=== PATIENT | male | born 1965 | race Caucasian/White ===

== ENCOUNTER 2023-07-01 13:23 | Observation (INO) | payer BC ==
--- NOTE | 2023-07-01 07:50 | HP ---
DATE OF SURGERY: 07/01/2023 HISTORY OF PRESENT ILLNESS: The patient is a 57-year-old with several month history of some rectal pain and bleeding. 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 He is in need of chemo and radiation. He is in need of Port-A-Cath placement. PAST MEDICAL HISTORY: Pneumonia. Anorectal cancer in the past. PAST SURGICAL HISTORY: T&A. Cholecystectomy. Colonoscopy. MEDICATIONS: He had been on ibuprofen in the past. ALLERGIES: NKDA. FAMILY HISTORY: Chronic obstructive pulmonary disease, heart disease. SOCIAL HISTORY: One pack per day smoker. No alcohol abuse. REVIEW OF SYSTEMS: Twelve systems reviewed. No chest pain or palpitations. Other systems negative or noncontributory as above and per preadmission questionnaire. PHYSICAL EXAMINATION: GENERAL: No acute distress. HEENT: Sclerae nonicteric. EOMI. Oral mucous membranes moist. NECK: No JVD. CHEST: Equal excursion, nonlabored breathing. CVS: Regular rate and rhythm. ABDOMEN: Soft. No peritoneal signs. EXTREMITIES: No cyanosis or edema. NEURO: Alert, oriented, moving extremities symmetrically. RECTAL: Firm mass in the anorectal area. Last colonoscopy had squamous cell carcinoma. PSYCH: Appropriate mood and affect. SKIN: Dry. IMPRESSION: Squamous cell carcinoma in anorectal area. He is in need of chemo and radiation. Risks and benefits explained in detail including bleeding or infection, risk of bowel injury or perforation, risk of pneumothorax or thrombosis, remote risk of major venous tear, risk of mortality, risk of port infection or malfunction possibly requiring other procedures. General risk of anesthesia or sedation but not limited to. Consent obtained. Will proceed with Port-A-Cath placement as an outpatient.
[2023-07-01] MEDS: Lactated Ringers 1,000 ML IV SCH (11:58)
[2023-07-01] MEDS: CEFAZOLIN 2 GM-D5W BAG** 2 GM/50 ML ML IV SCH (11:58)
[~2023-07-01 13:23] MED LIST: CARDIZEM DRIP 100 MG/100 ML D5W 100 ML IV ONE
--- NOTE | 2023-07-01 13:25 | ERPHSYRPT ---
- History of Present Illness Time Seen by Provider: 07/01/23 13:25 Source: patient, family Exam Limitations: no limitations Physician History: This is a 57-year-old white male patient who has been diagnosed with rectal cancer. He was sent to our emergency department from the preoperative holding area. He was going to have a Port-A-Cath placed. However, he was noted to be tachycardic and a twelve-lead EKG was performed which showed a heart rate of 131 bpm, atrial fibrillation and incomplete right bundle branch block and left anterior fascicular block. He has no known history of atrial fibrillation. Patient denies chest pain. He denies shortness of breath. The patient's significant other provided additional, independent history. She stated that approximately 2 weeks ago, patient was seen in the radiology department for testing and was found to have a rapid heart at that time. However no other workup or discussion was made. Differential diagnosis includes CHF, electrolyte abnormalities, myocardial infarction, arrhythmia, urinary tract infection, thyroid abnormalities. Chest x-ray was interpreted by the radiologist and I read the impression. Non acute hyperinflated chest x-ray with chronic features. I spoke with Dr. Brooke, the telehospitalist. I reviewed the patient history, presenting complaint, workup performed and the results of that workup. He agrees to place this patient in observation on a monitored bed and continue Cardizem. They will do further workup in the hospital. Timing/Duration: today Activities at Onset: none Quality: other Chest Pain Radiation: no radiation Severity of Pain-Max: none Severity of Pain-Current: none (No pain) Modifying Factors: Improves With: nothing Nitro Today/Relief: no nitro taken today Aspirin Treatment Today: no aspirin today Associated Symptoms: denies symptoms Prior Chest Pain/Cardiac Workup: no prior chest pain, no prior cardiac workup Allergies/Adverse Reactions: No Known Drug Allergies Allergy (Verified 07/01/23 13:24) Home Medications: Hydrocodone/Acetaminophen [Hydrocodone-Acetamin 5-325 mg] 1 tab PO Q6H PRN PRN 07/01/23 [History] Morphine Sulfate Cr 30 mg [Ms Contin 30 mg] 30 mg PO BID 07/01/23 [History] Hx Tetanus, Diphtheria Vaccination/Date Given: Yes Hx Influenza Vaccination/Date Given: No Hx Pneumococcal Vaccination/Date Given: No Immunizations Up to Date: No Travel Risk - International Travel Have you traveled outside of the country in past 3 weeks: No - Emerging Infectious Disease Are you exhibiting symptoms associated with any current EIDs: Yes - Review of Systems Constitutional: No Symptoms Eyes: No Symptoms Ears, Nose, & Throat: No Symptoms Respiratory: No Symptoms Cardiac: No Symptoms Abdominal/Gastrointestinal: No Symptoms Genitourinary Symptoms: No Symptoms Musculoskeletal: No Symptoms Skin: No Symptoms Neurological: No Symptoms Psychological: No Symptoms Endocrine: No Symptoms Hematologic/Lymphatic: No Symptoms Immunological/Allergic: No Symptoms All Other Systems: Reviewed and Negative - Past Medical History Pertinent Past Medical History: Yes Neurological History: No Pertinent History ENT History: No Pertinent History Cardiac History: No Pertinent History Respiratory History: No Pertinent History Endocrine Medical History: No Pertinent History Musculoskeletal History: No Pertinent History GI Medical History: Gallbladder Disease History: No Pertinent History Psycho-Social History: No Pertinent History Male Reproductive Disorders: No Pertinent History Other Medical History: rectal cancer - Past Surgical History Past Surgical History: Yes Neuro Surgical History: No Pertinent History Cardiac: No Pertinent History Respiratory: No Pertinent History Gastrointestinal: Cholecystectomy Genitourinary: No Pertinent History Musculoskeletal: No Pertinent History Male Surgical History: No Pertinent History Other Surgical History: T&A. teeth extraction, bile duct surgery - Social History Smoking Status: Current every day smoker How long have you smoked: 25 years Exposure to second hand smoke: Yes Drug Use: none Patient Lives Alone: No - Nursing Vital Signs Nursing Vital Signs: Initial Vital Signs Temperature 97.4 F 07/01/23 11:49 Pulse Rate 92 H 07/01/23 11:49 Respiratory Rate 18 07/01/23 11:49 Blood Pressure 134/77 07/01/23 11:49 O2 Sat by Pulse Oximetry 100 07/01/23 11:49 Pain Scale Pain Intensity [Posterior] 5 Pain Intensity 0 - Physical Exam General Appearance: no apparent distress, alert, anxiety, obese Eye Exam: PERRL/EOMI, eyes nml inspection Ears, Nose, Throat Exam: normal ENT inspection, moist mucous membranes Neck Exam: normal inspection, non-tender, supple, full range of motion Respiratory Exam: normal breath sounds, lungs clear, airway intact, No chest tenderness, No respiratory distress Cardiovascular Exam: tachycardia, irregular Gastrointestinal/Abdomen Exam: soft, normal bowel sounds, other (Does have rectal pain), No tenderness Rectal Exam: not done Back Exam: normal inspection, normal range of motion, No CVA tenderness, No vertebral tenderness Extremity Exam: normal inspection, normal range of motion, pelvis stable Neurologic Exam: alert, oriented x 3, cooperative, instrument mechanic II-XII nml as tested, nml cerebellar function, nml station & gait, sensation nml Skin Exam: normal color, warm, dry Lymphatic Exam: No adenopathy SpO2 Interpretation: normal SpO2: 100 O2 Delivery: Room Air - Course Nursing assessment & vital signs reviewed: Yes EKG Interpreted by Me: RATE (131), A-fib, LAFB, Right Bundle Branch Block, Other (No acute ischemic changes on today's twelve-lead EKG. New A-fib with RVR when compared to twelve-lead EKG dated 10/01/2015.) Ordered Tests: Active Orders 24 hr Category Date Time Status Double Reamer Operator STAT Care 07/01/23 13:26 Active EKG-ER Only STAT Care 07/01/23 13:26 Active IV Insertion STAT Care 07/01/23 13:26 Active IV Insertion-2nd Peripheral STAT Care 07/01/23 13:46 Active Pulse Oximetry (ED) STAT Care 07/01/23 13:26 Active CHEST 1 VIEW (PORTABLE) Stat Exams 07/01/23 13:26 Completed CBC W DIFF Stat Lab 07/01/23 13:25 Completed CMP Stat Lab 07/01/23 13:25 Completed D-DIMER QUANTITATIVE Stat Lab 07/01/23 13:25 Completed MAGNESIUM Stat Lab 07/01/23 13:25 Completed NT PRO BNPII Stat Lab 07/01/23 13:25 Completed TROPONIN Q4H Lab 07/01/23 17:30 Ordered TROPONIN Q4H Lab 07/01/23 21:30 Ordered TROPONIN Stat Lab 07/01/23 13:25 Completed TSH [TSH, 3RD Generation] Stat Lab 07/01/23 14:34 Completed UA W/RFX UR CULTURE Stat Lab 07/01/23 14:20 Ordered EKG STAT RT 07/01/23 12:16 Completed Transfer Order Routine Transfer 07/01/23 Ordered Medication Summary Generic Name Dose Route Start Last Admin Trade Name Freq PRN Reason Stop Dose Admin Lactated Ringer's 1,000 mls @ 50 mls/hr 07/01/23 12:00 07/01/23 11:58 Lactated Ringers IV 07/31/23 11:59 50 mls/hr .Q20H JOSEPH Administration Diltiazem HCl 100 mls @ 5 mls/hr 07/01/23 13:30 07/01/23 16:31 Cardizem Drip 100 Mg/100 Ml D5w IV 07/31/23 13:29 10 mg/hr .Q20H PRN 10 mls/hr HEART RATE/ A-FIB Titration Protocol 5 MG/HR Discontinued Medications Generic Name Dose Route Start Last Admin Trade Name Freq PRN Reason Stop Dose Admin Diltiazem HCl 20 mg 07/01/23 13:26 07/01/23 13:26 Diltiazem Hcl Iv 5 Mg/Ml Vial IV 07/01/23 13:27 20 mg STAT ONE Administration Enoxaparin Sodium 95 mg 07/01/23 14:27 07/01/23 14:31 Enoxaparin Sodium 120 Mg/0.8 Ml Syringe SQ 07/01/23 14:28 95 mg STAT STA Administration Enoxaparin Sodium Confirm 07/01/23 14:31 Enoxaparin Sodium 120 Mg/0.8 Ml Syringe Administered 07/01/23 14:32 Dose 120 mg SQ .STK-MED ONE Cefazolin Sodium/Dextrose 2 gm in 50 mls @ 100 mls/hr 07/01/23 12:00 07/01/23 11:58 Cefazolin 2 Gm-D5w Bag IV 07/01/23 12:29 100 mls/hr ONCALLTOOR JOSEPH Administration Diltiazem HCl Confirm 07/01/23 13:22 Cardizem Drip 100 Mg/100 Ml D5w Administered 07/01/23 13:23 Dose 100 mls @ ud IV .STK-MED ONE Metoprolol Tartrate 5 mg 07/01/23 14:10 07/01/23 14:24 Metoprolol Tartrate 5 Mg/5 Ml Vial IV 07/01/23 14:11 5 mg STAT ONE Administration Metoprolol Tartrate Confirm 07/01/23 14:23 Metoprolol Tartrate 5 Mg/5 Ml Vial Administered 07/01/23 14:24 Dose 5 mg IV .STK-MED ONE Morphine Sulfate 6 mg 07/01/23 13:40 07/01/23 13:51 Morphine Sulfate 10 Mg/Ml Injection IV 07/01/23 13:41 6 mg STAT ONE Administration Morphine Sulfate Confirm 07/01/23 13:49 Morphine Sulfate 10 Mg/Ml Injection Administered 07/01/23 13:50 Dose 10 mg .ROUTE .STK-MED ONE Ondansetron HCl 4 mg 07/01/23 13:40 07/01/23 13:51 Ondansetron Hcl 4 Mg/2 Ml Vial IV 07/01/23 13:41 4 mg STAT ONE Administration Ondansetron HCl Confirm 07/01/23 13:49 Ondansetron Hcl 4 Mg/2 Ml Vial Administered 07/01/23 13:50 Dose 4 mg .ROUTE .[facility] ONE Lab/Rad Data: Laboratory Result Diagrams 07/01/23 13:25 07/01/23 13:25 Laboratory Results 07/01/23 07/01/23 07/01/23 Range/Units 14:34 14:34 13:25 WBC (4.0-10.5) x10^3/uL RBC (4.1-5.6) x10^6/uL Hgb (12.5-18.0) g/dL Hct (42-50) % MCV (78-100) fL MCH (26-32) pg MCHC (32-36) g/dL RDW (11.5-14.0) % Plt Count (150-450) x10^3/uL MPV (7.5-11.0) fL Gran % (36.0-66.0) % Immature Gran % (Auto) (0.00-0.4) % Nucleat RBC Rel Count (0.00-0.1) % Eos # (Auto) (0-0.5) x10^3/uL Immature Gran # (Auto) (0.00-0.03) x10^3u/L Absolute Lymphs (auto) (1.0-4.6) x10^3/uL Absolute Monos (auto) (0.0-1.3) x10^3/uL Absolute Nucleated RBC (0.00-0.01) x10^3u/L Lymphocytes % (24.0-44.0) % Monocytes % (0.0-12.0) % Eosinophils % (0.00-5.0) % Basophils % (0.0-0.4) % Absolute Granulocytes (1.4-6.9) x10^3/uL Basophils # (0-0.4) x10^3/uL D-Dimer (0.0-0.50) mg/L Sodium (135-145) mmol/L Potassium (3.5-5.1) mmol/L Chloride (98-107) mmol/L Carbon Dioxide (22-30) mmol/L Anion Gap (5-15) MEQ/L BUN (9-20) mg/dL Creatinine (0.66-1.25) mg/dL Estimated GFR ML/MIN Glucose (74-106) mg/dL Calcium (8.4-10.2) mg/dL Magnesium (1.6-2.3) mg/dL Total Bilirubin (0.2-1.3) mg/dL AST (17-59) U/L ALT (0-50) U/L Alkaline Phosphatase (38-126) U/L Troponin I < 0.012 (0.000-0.033) ng/mL NT-Pro-B Natriuret Pep 2920 (<300) pg/mL Serum Total Protein (6.3-8.2) g/dL Albumin (3.5-5.0) g/dL Free T4 1.64 (0.78-2.19) ng/dL TSH 3rd Generation 0.535 (0.470-4.680) mIU/L 07/01/23 07/01/23 07/01/23 Range/Units 13:25 13:25 13:25 WBC 6.5 (4.0-10.5) x10^3/uL RBC 3.83 L (4.1-5.6) x10^6/uL Hgb 11.8 L (12.5-18.0) g/dL Hct 35.8 L (42-50) % MCV 93.5 (78-100) fL MCH 30.8 (26-32) pg MCHC 33.0 (32-36) g/dL RDW 14.1 H (11.5-14.0) % Plt Count 257 (150-450) x10^3/uL MPV 9.6 (7.5-11.0) fL Gran % 73.2 H (36.0-66.0) % Immature Gran % (Auto) 0.3 (0.00-0.4) % Nucleat RBC Rel Count 0.0 (0.00-0.1) % Eos # (Auto) 0.04 (0-0.5) x10^3/uL Immature Gran # (Auto) 0.02 (0.00-0.03) x10^3u/L Absolute Lymphs (auto) 1.09 (1.0-4.6) x10^3/uL Absolute Monos (auto) 0.55 (0.0-1.3) x10^3/uL Absolute Nucleated RBC 0.00 (0.00-0.01) x10^3u/L Lymphocytes % 16.7 L (24.0-44.0) % Monocytes % 8.4 (0.0-12.0) % Eosinophils % 0.6 (0.00-5.0) % Basophils % 0.8 (0.0-0.4) % Absolute Granulocytes 4.79 (1.4-6.9) x10^3/uL Basophils # 0.05 (0-0.4) x10^3/uL D-Dimer 0.46 (0.0-0.50) mg/L Sodium 141 (135-145) mmol/L Potassium 4.0 (3.5-5.1) mmol/L Chloride 109 H (98-107) mmol/L Carbon Dioxide 20 L (22-30) mmol/L Anion Gap 16.1 H (5-15) MEQ/L BUN 11 (9-20) mg/dL Creatinine 0.76 (0.66-1.25) mg/dL Estimated GFR 104.8 ML/MIN Glucose 90 (74-106) mg/dL Calcium 9.4 (8.4-10.2) mg/dL Magnesium 2.2 (1.6-2.3) mg/dL Total Bilirubin 1.20 (0.2-1.3) mg/dL AST 21 (17-59) U/L ALT 17 (0-50) U/L Alkaline Phosphatase 62 (38-126) U/L Troponin I (0.000-0.033) ng/mL NT-Pro-B Natriuret Pep (<300) pg/mL Serum Total Protein 6.8 (6.3-8.2) g/dL Albumin 3.3 L (3.5-5.0) g/dL Free T4 (0.78-2.19) ng/dL TSH 3rd Generation (0.470-4.680) mIU/L - Progress Progress: improved, re-examined Air Movement: good Progress Note: 07/01/23 14:16 My medical decision making and the assignment of high complexity to this patient's medical issue today is based on review of the patient's past medical history, review of the patient's old twelve-lead EKG and outpatient EKG from today, review the patient's medication list, review the patient drug allergy lis t, history present illness and physical findings on examination. The workup in this patient includes placement of an intravenous line, repeat twelve-lead EKG, infusion of 20 mg of intravenous Cardizem, CBC, CMP, magnesium, troponin, D- dimer level, urinalysis. 07/01/23 14:18 Differential diagnosis includes electrolyte abnormalities, myocardial infarction, arrhythmia abnormalities, dehydration, urinary tract infection, thyroid abnormalities, CHF 07/01/23 14:26 After a 20 mg bolus of intravenous Cardizem and Cardizem drip started, the repeat twelve-lead EKG shows patient to still be in atrial fibrillation with a heart rate is improving. The heart rate now is 116 bpm. There are no acute ischemic changes on this repeat twelve-lead EKG. 07/01/23 15:29 Chest x-ray was interpreted by the radiologist and I reviewed the impression. Patient states hyperinflated nonacute chest x-ray with chronic features. 07/01/23 16:35 The third twelve-lead EKG was performed at 1628 on 07/01/2023 and I interpreted this twelve-lead EKG.. Patient now has rate controlled atrial fibrillation with a heart rate of 86. No evidence of acute ischemia present. Patient continues to be on Cardizem drip. Blood Culture(s) Obtained: No Antibiotics given: No Discussed with Dr.: Ashby Medical Desision Making - Independent Historian Additional History obtained from: Spouse - Discussion of managment Care discussed with:: hospitalist Reviewed:: Test results, Need for additional workup Agreed on:: Treatment plan, place in obs Will see patient: in hospital - Diagnostic Testing Diagnostic test were ordered, analyzed, and reviewed by me: Yes Radiological Interpretation: Reviewed by me, Teleradiologist Report - Risk of complications The pt has a high risk of morbidity or mortality based on: Decision regarding hospitilization or escalation of hosp level of care - Departure Departure Disposition: Observation Clinical Impression: Atrial fibrillation with RVR Condition: Stable Critical Care Time: Yes Critical Care Time(excluding separately billable procedures): Critical 30-74 mins (60) Referrals: JOHNSON BENAVIDEZ [Primary Care Provider] - Follow up/PCP as directed
[2023-07-01] MEDS: Cardizem IV 50 MG/10 ML IV ONE (13:26)
[2023-07-01] MEDS ORDERED: Zofran 4 MG/2 ML VIAL ONE (13:49)
[2023-07-01] MEDS ORDERED: MORPHINE SULFATE 10 MG/ML ONE (13:49)
[2023-07-01] MEDS: CARDIZEM DRIP 100 MG/100 ML D5W 100 ML IV PRN (13:51)
[2023-07-01] MEDS: MORPHINE SULFATE 10 MG/ML IV ONE (13:51)
[2023-07-01] MEDS: Zofran 4 MG/2 ML VIAL IV ONE (13:51)
[2023-07-01 13:53] LABS: Absolute Neutrophil Ct (ANC) 4.79 x10^3/uL (1.4-6.9); BASOPHIL % 0.8 % (0.0-0.4); Basophil (Absolute #) 0.05 x10^3/uL (0-0.4); Eosinophil % 0.6 % (0.00-5.0); Eosinophil (Absolute #) 0.04 x10^3/uL (0-0.5); Hematocrit 35.8 % (42-50); Hemoglobin 11.8 g/dL (12.5-18.0); IMMATURE GRAN # 0.02 x10^3u/L (0.00-0.03); IMMATURE GRAN % 0.3 % (0.00-0.4); Lymphocyte (Absolute #) 1.09 x10^3/uL (1.0-4.6); Lymphocytes % 16.7 % (24.0-44.0); Mean Cell Volume 93.5 fL (78-100); Mean Corpuscular Hemoglobin 30.8 pg (26-32); Mean Platelet Volume 9.6 fL (7.5-11.0); Monocyte (Absolute #) 0.55 x10^3/uL (0.0-1.3); Monocytes % 8.4 % (0.0-12.0); Neutrophil % 73.2 % (36.0-66.0); Platelet Count 257 x10^3/uL (150-450); Red Blood Count 3.83 x10^6/uL (4.1-5.6); Red Cell Distribution Width 14.1 % (11.5-14.0); White Blood Count 6.5 x10^3/uL (4.0-10.5)
--- NOTE | 2023-07-01 14:07 | XRAY ---
Indication: Short of breath. Atrial fibrillation. Comparison: September 10, 2015. Portable chest again hyperinflated and clear with incidental right base calcified granuloma. Heart and mediastinal structures within normal limits. Bony thorax intact. Impression: Continued nonacute hyperinflated chest with chronic feature.
[2023-07-01] MEDS ORDERED: LOPRESSOR INJECTION IV ONE (14:23)
[2023-07-01 14:24] LABS: ALBUMIN 3.3 g/dL (3.5-5.0); ANION GAP 16.1 MEQ/L (5-15); BILIRUBIN,TOTAL 1.2 mg/dL (0.2-1.3); Calcium 9.4 mg/dL (8.4-10.2); Creatinine 1 0.76 mg/dL (0.66-1.25); EST GLOMERULAR FILTRATION RATE 104.8 ML/MIN; MAGNESIUM 2.2 mg/dL (1.6-2.3); Total Protein 6.8 g/dL (6.3-8.2)
[2023-07-01] MEDS: LOPRESSOR INJECTION IV ONE (14:24)
[2023-07-01] MEDS: ENOXAPARIN SODIUM SQ STA (14:31)
[2023-07-01] MEDS ORDERED: ENOXAPARIN SODIUM SQ ONE (14:31)
[2023-07-01 14:48] LABS: NT PRO BNPII 2920 pg/mL (<300); TROPONIN < 0.012 ng/mL (0.000-0.033)
[2023-07-01] MEDS ORDERED: Zofran 4 MG/2 ML VIAL IV PRN (17:25)
[2023-07-01] MEDS ORDERED: TYLENOL 325 MG PO PRN (17:25)
[2023-07-01] MEDS ORDERED: MORPHINE SULFATE 10 MG/ML IV PRN (17:25)
[2023-07-01] MEDS ORDERED: Narcan 0.4 MG/ML IV PRN (17:30)
--- NOTE | 2023-07-01 17:32 | PCM.HP ---
History of Present Illness - Chief Complaint Chief Complaint: A-fib with RVRnew onset Date: 07/01/23 History of Present Illness: is a 57 year old male with a PMHX of rectal cancer and daily smoker. He was sent to our emergency department from the preoperative holding area. He was going to have a Port-A-Cath placed today for rectal cancer treatment. However, he was noted to be tachycardic and a twelve-lead EKG was performed which showed a heart rate of 131 bpm, atrial fibrillation and incomplete right bundle branch block and left anterior fascicular block. He has no known history of atrial fibrillation. Patient denies chest pain. He denies shortness of breath. The patient's significant other provided additional, independent history. She stated that approximately 2 weeks ago, patient was seen in the radiology department for testing and was found to have a rapid heart at that time. However no other workup or discussion was made. Pt was started on a cardizem gtt in the ER and will continue until converted. He does c/o of some rectal bleeding today, Hgb stable at 11. Will continue to monitor. He denies Abd pain, N/V/D. - Review of Systems Constitutional: No Fever, No Chills Eyes: No Symptoms Ears, Nose, & Throat: No Symptoms Respiratory: No Cough, No Short Of Breath Cardiac: Other (rapid heart heart), No Chest Pain, No Edema, No Syncope Abdominal/Gastrointestinal: No Abdominal Pain, No Nausea, No Vomiting, No Diarrhea Genitourinary Symptoms: No Dysuria Musculoskeletal: No Back Pain, No Neck Pain Skin: No Rash Neurological: No Dizziness, No Focal Weakness, No Sensory Changes Psychological: No Symptoms Endocrine: No Symptoms Hematologic/Lymphatic: No Symptoms Immunological/Allergic: No Symptoms Medications & Allergies Home Medications: Home Medication List Hydrocodone/Acetaminophen [Hydrocodone-Acetamin 5-325 mg] 1 tab PO Q6H PRN PRN 07/01/23 [History Confirmed 07/01/23] Morphine Sulfate Cr 30 mg [Ms Contin 30 mg] 30 mg PO BID 07/01/23 [History Confirmed 07/01/23] Allergies/Adverse Reactions: Allergies Allergy/AdvReac Type Severity Reaction Status Date / Time No Known Drug Allergies Allergy Verified 07/01/23 13:24 - Past Medical History Past Medical History: Yes Neurological History: No Pertinent History ENT History: No Pertinent History Cardiac History: No Pertinent History Respiratory History: No Pertinent History Endocrine Medical History: No Pertinent History Musculoskelatal History: No Pertinent History GI Medical History: Gallbladder Disease History: No Pertinent History Pyscho-Social History: No Pertinent History Male Reproductive Disorders: No Pertinent History Comment: rectal cancer - Past Surgical History Past Surgical History: Yes Neuro Surgical History: No Pertinent History Cardiac History: No Pertinent History Respiratory Surgery: No Pertinent History GI Surgical History: Cholecystectomy Genitourinary Surgical Hx: No Pertinent History Musculskeletal Surgical Hx: No Pertinent History Male Surgical History: No Pertinent History Other Surgical History: T&A. teeth extraction, bile duct surgery - Social History Smoking Status: Current every day smoker How long have you smoked: 25 years Exposure to second hand smoke: Yes Alcohol: None Drug Use: none - Social Determinants of Health Will the patient participate in the screening: Declined to provide - Physical Exam Vital Signs: Vital Signs - 24 hr Temp Pulse Resp BP BP Pulse Ox 07/01/23 17:00 117 H 17 120/86 96 07/01/23 16:58 100 07/01/23 16:45 94 H 22 112/86 95 07/01/23 16:31 105 H 21 121/80 07/01/23 16:30 103 H 21 121/80 97 07/01/23 16:16 100 H 21 110/80 97 07/01/23 16:00 101 H 22 118/76 96 07/01/23 15:45 96 H 22 111/77 95 07/01/23 15:30 106 H 22 109/81 96 07/01/23 15:16 94 H 18 109/84 96 07/01/23 15:00 89 20 119/78 95 07/01/23 14:45 102 H 19 103/81 94 L 07/01/23 14:30 96 H 20 117/99 96 07/01/23 14:23 111 H 23 126/92 96 07/01/23 14:22 114 H 19 98 07/01/23 14:20 121 H 19 97 07/01/23 14:19 138 H 21 97 07/01/23 14:05 109 H 19 117/91 96 07/01/23 14:00 135 H 22 122/83 95 07/01/23 13:55 115 H 18 109/86 94 L 07/01/23 13:50 122 H 26 H 127/96 99 07/01/23 13:45 102 H 18 120/93 98 07/01/23 13:40 122 H 17 125/96 99 07/01/23 13:35 113 H 17 120/83 97 07/01/23 13:30 100 H 14 125/86 98 07/01/23 13:26 98 07/01/23 13:23 98.1 F 151 H 20 123/106 99 07/01/23 12:00 97.4 F 92 H 18 134/77 100 07/01/23 11:49 97.4 F 92 H 18 134/77 100 General Appearance: no apparent distress, alert Neurologic Exam: alert, oriented x 3, cooperative, normal mood/affect, nml cerebellar function, nml station & gait, sensation nml, No motor deficits Eye Exam: PERRL/EOMI, eyes nml inspection Ears, Nose, Throat Exam: normal ENT inspection, TMs normal, pharynx normal, moist mucous membranes Neck Exam: normal inspection, non-tender, supple, full range of motion Respiratory Exam: normal breath sounds, lungs clear, No respiratory distress Cardiovascular Exam: normal heart sounds, normal peripheral pulses, irregular Gastrointestinal/Abdomen Exam: soft, normal bowel sounds, No tenderness, No mass Back Exam: normal inspection, normal range of motion, No CVA tenderness, No vertebral tenderness Extremity Exam: normal inspection, normal range of motion, pelvis stable Skin Exam: normal color, warm, dry, No rash Lymphatic Exam: No adenopathy Results - Labs Lab/Micro Results: Lab Results-Last 24 Hours 07/01/23 07/01/23 07/01/23 Range/Units 13:25 13:25 13:25 WBC 6.5 (4.0-10.5) x10^3/uL RBC 3.83 L (4.1-5.6) x10^6/uL Hgb 11.8 L (12.5-18.0) g/dL Hct 35.8 L (42-50) % MCV 93.5 (78-100) fL MCH 30.8 (26-32) pg MCHC 33.0 (32-36) g/dL RDW 14.1 H (11.5-14.0) % Plt Count 257 (150-450) x10^3/uL MPV 9.6 (7.5-11.0) fL Gran % 73.2 H (36.0-66.0) % Immature Gran % (Auto) 0.3 (0.00-0.4) % Nucleat RBC Rel Count 0.0 (0.00-0.1) % Eos # (Auto) 0.04 (0-0.5) x10^3/uL Immature Gran # (Auto) 0.02 (0.00-0.03) x10^3u/L Absolute Lymphs (auto) 1.09 (1.0-4.6) x10^3/uL Absolute Monos (auto) 0.55 (0.0-1.3) x10^3/uL Absolute Nucleated RBC 0.00 (0.00-0.01) x10^3u/L Lymphocytes % 16.7 L (24.0-44.0) % Monocytes % 8.4 (0.0-12.0) % Eosinophils % 0.6 (0.00-5.0) % Basophils % 0.8 (0.0-0.4) % Absolute Granulocytes 4.79 (1.4-6.9) x10^3/uL Basophils # 0.05 (0-0.4) x10^3/uL D-Dimer 0.46 (0.0-0.50) mg/L Sodium 141 (135-145) mmol/L Potassium 4.0 (3.5-5.1) mmol/L Chloride 109 H (98-107) mmol/L Carbon Dioxide 20 L (22-30) mmol/L Anion Gap 16.1 H (5-15) MEQ/L BUN 11 (9-20) mg/dL Creatinine 0.76 (0.66-1.25) mg/dL Estimated GFR 104.8 ML/MIN Glucose 90 (74-106) mg/dL Calcium 9.4 (8.4-10.2) mg/dL Magnesium 2.2 (1.6-2.3) mg/dL Total Bilirubin 1.20 (0.2-1.3) mg/dL AST 21 (17-59) U/L ALT 17 (0-50) U/L Alkaline Phosphatase 62 (38-126) U/L Troponin I (0.000-0.033) ng/mL NT-Pro-B Natriuret Pep (<300) pg/mL Serum Total Protein 6.8 (6.3-8.2) g/dL Albumin 3.3 L (3.5-5.0) g/dL Free T4 (0.78-2.19) ng/dL TSH 3rd Generation (0.470-4.680) mIU/L 07/01/23 07/01/23 07/01/23 Range/Units 13:25 14:34 14:34 WBC (4.0-10.5) x10^3/uL RBC (4.1-5.6) x10^6/uL Hgb (12.5-18.0) g/dL Hct (42-50) % MCV (78-100) fL MCH (26-32) pg MCHC (32-36) g/dL RDW (11.5-14.0) % Plt Count (150-450) x10^3/uL MPV (7.5-11.0) fL Gran % (36.0-66.0) % Immature Gran % (Auto) (0.00-0.4) % Nucleat RBC Rel Count (0.00-0.1) % Eos # (Auto) (0-0.5) x10^3/uL Immature Gran # (Auto) (0.00-0.03) x10^3u/L Absolute Lymphs (auto) (1.0-4.6) x10^3/uL Absolute Monos (auto) (0.0-1.3) x10^3/uL Absolute Nucleated RBC (0.00-0.01) x10^3u/L Lymphocytes % (24.0-44.0) % Monocytes % (0.0-12.0) % Eosinophils % (0.00-5.0) % Basophils % (0.0-0.4) % Absolute Granulocytes (1.4-6.9) x10^3/uL Basophils # (0-0.4) x10^3/uL D-Dimer (0.0-0.50) mg/L Sodium (135-145) mmol/L Potassium (3.5-5.1) mmol/L Chloride (98-107) mmol/L Carbon Dioxide (22-30) mmol/L Anion Gap (5-15) MEQ/L BUN (9-20) mg/dL Creatinine (0.66-1.25) mg/dL Estimated GFR ML/MIN Glucose (74-106) mg/dL Calcium (8.4-10.2) mg/dL Magnesium (1.6-2.3) mg/dL Total Bilirubin (0.2-1.3) mg/dL AST (17-59) U/L ALT (0-50) U/L Alkaline Phosphatase (38-126) U/L Troponin I < 0.012 (0.000-0.033) ng/mL NT-Pro-B Natriuret Pep 2920 (<300) pg/mL Serum Total Protein (6.3-8.2) g/dL Albumin (3.5-5.0) g/dL Free T4 1.64 (0.78-2.19) ng/dL TSH 3rd Generation 0.535 (0.470-4.680) mIU/L - Radiology Impressions Radiology Exams & Impressions: Radiology Procedures Category Date Time Status CHEST 1 VIEW (PORTABLE) Stat Exams 07/01/23 13:26 Completed - Other Procedures and Tests Respiratory Therapy 07/01/23 17:25 EKG REPEAT IN AM Assessment/Plan (1) Atrial fibrillation with RVR Current Visit: Yes Status: Acute Assessment & Plan: - ICU- Tele - Cardiology consult - Echo - Lovenox on ER - high risk for bleeding r/t colon ca will hold further blood thinners a this time. - SCD's - Started on cardizem gtt in ER- continue and titrate - Start Metoprolol PO when rate controlled - Keep K+>4 and Mg+ >2 - BMP, MG+ and TSH reviewed - + active rectal bleeding.- Hgb 11- monitor - Heart healthy diet - If he converts OK to make NPO after midnight for possible port placement tomorrow. - pt was to start chemo this week and is anxious to do so. - Oncologist Dr. Glass Code(s): I48.91 - UNSPECIFIED ATRIAL FIBRILLATION (2) Rectal cancer Current Visit: Yes Status: Acute Assessment & Plan: - Was to have port place today but found to be in A-fib RVR on Monitior - port placement to be rescheduled. Code(s): C20 - MALIGNANT NEOPLASM OF RECTUM (3) Smoker Current Visit: Yes Status: Acute Assessment & Plan: - advised cessation - nicotine patch VTE: Lovenox gave in ER will continue with SCD's as he is high risk for bleeding d/t rectal CA Next of KIN: Sibling- Li Esteves [phone] Code status: Full D/C plan: 1-2 days Code(s): F17.200 - NICOTINE DEPENDENCE, UNSPECIFIED, UNCOMPLICATED Telemedicine Encounter - Telemedicine Encounter Telemedicine Encounter: The entirety of this encounter was performed via Telemedicine" This visit was performed using real-time audio and video connection between my location and thepatients locationwith the assistance of a surrogateat the patients location. Written or verbal consent was obtained from the patient/guardian to perform this visit [facility] technology. Any patient questions regarding the telemedicine interaction were answered
[2023-07-01] MEDS: Nicoderm CQ 21 MG TOP SCH (18:17)
[2023-07-01] MEDS: NORCO 5/325 MG PO PRN (18:18)
[2023-07-01 19:12] LABS: INR 0.97 (0.8-3.0); PROTIME 10.6 SECONDS (9.4-12.5)
[2023-07-01] MEDS: Ms Contin 15 MG PO SCH (21:02)
[2023-07-01] MEDS ORDERED: NON-FORMULARY ITEM (Morphine Sulfate Cr 30 Mg*** 30 MG Tablet.Sa) PO SCH (22:00)
[2023-07-02 03:14] LABS: Appearance Clear (Clear); Bacteria None Seen /HPF (None Seen); Bilirubin Small (Negative); Blood Negative (Negative); Epithelial Cells None Seen /HPF (None Seen); Glucose, Urine Negative (Negative); Hyaline Casts NONE SEEN /LPF (0-2); Ketones Trace (Negative); Leukocyte Esterase Negative (Negative); Nitrite Negative (Negative); Protein,Urine Dip Negative (Negative); RBC 0-2 /HPF (0-5); WBC 0-2 /HPF (0-5)
[2023-07-02 03:17] LABS: ADD URINE CULTURE? NO (NO)
[2023-07-02 04:57] LABS: Absolute Neutrophil Ct (ANC) 4.41 x10^3/uL (1.4-6.9); BASOPHIL % 0.5 % (0.0-0.4); Basophil (Absolute #) 0.03 x10^3/uL (0-0.4); Eosinophil (Absolute #) 0.13 x10^3/uL (0-0.5); Hematocrit 32.3 % (42-50); Hemoglobin 10.5 g/dL (12.5-18.0); IMMATURE GRAN # 0.03 x10^3u/L (0.00-0.03); IMMATURE GRAN % 0.5 % (0.00-0.4); Lymphocyte (Absolute #) 1.11 x10^3/uL (1.0-4.6); Lymphocytes % 17.5 % (24.0-44.0); Mean Cell Volume 93.9 fL (78-100); Mean Corpuscular Hemoglobin 30.5 pg (26-32); Mean Corpuscular Hgb Concent. 32.5 g/dL (32-36); Mean Platelet Volume 9.8 fL (7.5-11.0); Monocyte (Absolute #) 0.64 x10^3/uL (0.0-1.3); Monocytes % 10.1 % (0.0-12.0); Neutrophil % 69.4 % (36.0-66.0); Platelet Count 222 x10^3/uL (150-450); Red Blood Count 3.44 x10^6/uL (4.1-5.6); Red Cell Distribution Width 14.4 % (11.5-14.0); White Blood Count 6.4 x10^3/uL (4.0-10.5)
[2023-07-02 05:28] LABS: ALBUMIN 2.8 g/dL (3.5-5.0); ANION GAP 9.6 MEQ/L (5-15); BILIRUBIN,TOTAL 0.6 mg/dL (0.2-1.3); Calcium 8.5 mg/dL (8.4-10.2); Creatinine 1 0.79 mg/dL (0.66-1.25); EST GLOMERULAR FILTRATION RATE 103.6 ML/MIN; Potassium 3.6 mmol/L (3.5-5.1); Total Protein 5.9 g/dL (6.3-8.2)
[2023-07-02] MEDS: Klor Con PO ONE (08:53)
[2023-07-02] MEDS: Lopressor 25MG Tab PO ONE (10:44)
--- NOTE | 2023-07-02 11:17 | PCM.NOTE ---
Date and Time: 07/02/23 1112 Subjective Assessment: 07/01/23 is a 57 year old male with a PMHX of rectal cancer and daily smoker. He was sent to our emergency department from the preoperative holding area. He was going to have a Port-A-Cath placed today for rectal cancer treatment. However, he was noted to be tachycardic and a twelve-lead EKG was performed which showed a heart rate of 131 bpm, atrial fibrillation and incomplete right bundle branch block and left anterior fascicular block. He has no known history of atrial fibrillation. Patient denies chest pain. He denies shortness of breath. The patient's significant other provided additional, independent history. She stated that approximately 2 weeks ago, patient was seen in the radiology department for testing and was found to have a rapid heart at that time. However no other workup or discussion was made. Pt was started on a Cardizem gtt in the ER and will continue until converted. He does c/o of some rectal bleeding today, Hgb stable at 11. Will continue to monitor. He denies Abd pain, N/V/D. 07/02/23 Pt resting in bed. He continues to be on Cardizem gtt. He continues to be in A- fib but HR is lower. BP has been lower overnight 90/70's. Cardiology consulted and appreciate recs. Echo to be done today. Pt denies CP, SOB, abd. pain, N/V/D. - Review of Systems Constitutional: No Fever, No Chills Eyes: No Symptoms Ears, Nose, & Throat: No Symptoms Respiratory: No Cough, No Short Of Breath Cardiac: No Chest Pain, No Edema, No Syncope Abdominal/Gastrointestinal: No Abdominal Pain, No Nausea, No Vomiting, No Diarrhea Genitourinary Symptoms: No Dysuria Musculoskeletal: No Back Pain, No Neck Pain Skin: No Rash Neurological: No Dizziness, No Focal Weakness, No Sensory Changes Psychological: No Symptoms Endocrine: No Symptoms Hematologic/Lymphatic: No Symptoms Immunological/Allergic: No Symptoms Objective Exam General Appearance: no apparent distress, alert Neurologic Exam: alert, oriented x 3, cooperative, normal mood/affect, nml cerebellar function, sensation nml, No motor deficits Skin Exam: normal color, warm, dry Eye Exam: PERRL, EOMI, eyes nml inspection Ears, Nose, Throat Exam: normal ENT inspection, pharynx normal, moist mucous membranes Neck Exam: normal inspection, non-tender, supple, full range of motion Respiratory Exam: normal breath sounds, lungs clear, No respiratory distress Cardiovascular Exam: normal heart sounds, irregular Gastrointestinal/Abdomen Exam: soft, No tenderness, No mass Extremity Exam: normal inspection, normal range of motion Back Exam: normal inspection, normal range of motion, No CVA tenderness, No vertebral tenderness Male Genitalia Exam: deferred Rectal Exam: deferred Objective Data Vital Signs: Vital Signs - 24 hr Temp Pulse Resp BP BP Pulse Ox 07/02/23 10:00 84 21 108/76 97 07/02/23 09:00 88 17 110/72 95 07/02/23 08:01 86 21 105/81 97 07/02/23 08:00 99 H 07/02/23 07:00 83 23 101/83 95 07/02/23 06:00 92 H 22 109/66 95 07/02/23 05:00 84 19 91/71 95 07/02/23 04:00 97.5 F 76 25 H 94/67 97 07/02/23 03:00 101 H 25 H 100/73 95 07/02/23 02:00 98 H 27 H 99/72 95 07/02/23 01:00 115 H 24 110/71 96 07/02/23 00:01 95 H 07/02/23 00:00 95 H 25 H 99/71 96 07/01/23 23:00 97.6 F 104 H 27 H 101/70 97 07/01/23 22:00 97 H 25 H 112/65 94 L 07/01/23 21:04 122 H 19 108/89 07/01/23 21:00 116 H 23 108/89 96 07/01/23 20:00 98.2 F 133 H 23 125/70 95 07/01/23 19:01 113 H 21 108/79 95 07/01/23 18:00 129 H 19 125/81 07/01/23 17:32 98.7 F 101 H 18 128/88 97 07/01/23 17:25 97 07/01/23 17:00 117 H 17 120/86 96 07/01/23 16:58 100 07/01/23 16:45 94 H 22 112/86 95 07/01/23 16:31 105 H 21 121/80 07/01/23 16:30 103 H 21 121/80 97 07/01/23 16:16 100 H 21 110/80 97 07/01/23 16:00 101 H 22 118/76 96 07/01/23 15:45 96 H 22 111/77 95 07/01/23 15:30 106 H 22 109/81 96 07/01/23 15:16 94 H 18 109/84 96 07/01/23 15:00 89 20 119/78 95 07/01/23 14:45 102 H 19 103/81 94 L 07/01/23 14:30 96 H 20 117/99 96 07/01/23 14:23 111 H 23 126/92 96 07/01/23 14:22 114 H 19 98 07/01/23 14:20 121 H 19 97 07/01/23 14:19 138 H 21 97 07/01/23 14:05 109 H 19 117/91 96 07/01/23 14:00 135 H 22 122/83 95 07/01/23 13:55 115 H 18 109/86 94 L 07/01/23 13:50 122 H 26 H 127/96 99 07/01/23 13:45 102 H 18 120/93 98 07/01/23 13:40 122 H 17 125/96 99 07/01/23 13:35 113 H 17 120/83 97 07/01/23 13:30 100 H 14 125/86 98 07/01/23 13:26 98 07/01/23 13:23 98.1 F 151 H 20 123/106 99 07/01/23 12:00 97.4 F 92 H 18 134/77 100 07/01/23 11:49 97.4 F 92 H 18 134/77 100 Pain Assessment - Last Documented Pain Intensity [Posterior] 5 Pain Intensity 7 Pain Scale Used 0-10 Pain Scale Intake and Output: Intake & Output 06/29/23 06/30/23 07/01/23 07/02/23 11:59 11:59 11:59 11:59 Intake Total 600 Output Total 500 Balance 100 Weight 95.9 kg 95.7 kg Lab Results: Lab Results-Last 24 Hours 07/01/23 07/01/23 07/01/23 Range/Units 13:25 13:25 13:25 WBC 6.5 (4.0-10.5) x10^3/uL RBC 3.83 L (4.1-5.6) x10^6/uL Hgb 11.8 L (12.5-18.0) g/dL Hct 35.8 L (42-50) % MCV 93.5 (78-100) fL MCH 30.8 (26-32) pg MCHC 33.0 (32-36) g/dL RDW 14.1 H (11.5-14.0) % Plt Count 257 (150-450) x10^3/uL MPV 9.6 (7.5-11.0) fL Gran % 73.2 H (36.0-66.0) % Immature Gran % (Auto) 0.3 (0.00-0.4) % Nucleat RBC Rel Count 0.0 (0.00-0.1) % Eos # (Auto) 0.04 (0-0.5) x10^3/uL Immature Gran # (Auto) 0.02 (0.00-0.03) x10^3u/L Absolute Lymphs (auto) 1.09 (1.0-4.6) x10^3/uL Absolute Monos (auto) 0.55 (0.0-1.3) x10^3/uL Absolute Nucleated RBC 0.00 (0.00-0.01) x10^3u/L Lymphocytes % 16.7 L (24.0-44.0) % Monocytes % 8.4 (0.0-12.0) % Eosinophils % 0.6 (0.00-5.0) % Basophils % 0.8 (0.0-0.4) % Absolute Granulocytes 4.79 (1.4-6.9) x10^3/uL Basophils # 0.05 (0-0.4) x10^3/uL PT (9.4-12.5) SECONDS INR (0.8-3.0) D-Dimer 0.46 (0.0-0.50) mg/L Sodium 141 (135-145) mmol/L Potassium 4.0 (3.5-5.1) mmol/L Chloride 109 H (98-107) mmol/L Carbon Dioxide 20 L (22-30) mmol/L Anion Gap 16.1 H (5-15) MEQ/L BUN 11 (9-20) mg/dL Creatinine 0.76 (0.66-1.25) mg/dL Estimated GFR 104.8 ML/MIN Glucose 90 (74-106) mg/dL Calcium 9.4 (8.4-10.2) mg/dL Magnesium 2.2 (1.6-2.3) mg/dL Total Bilirubin 1.20 (0.2-1.3) mg/dL AST 21 (17-59) U/L ALT 17 (0-50) U/L Alkaline Phosphatase 62 (38-126) U/L Troponin I (0.000-0.033) ng/mL NT-Pro-B Natriuret Pep (<300) pg/mL Serum Total Protein 6.8 (6.3-8.2) g/dL Albumin 3.3 L (3.5-5.0) g/dL Triglycerides (30-150) mg/dL Cholesterol (50-200) mg/dL LDL Cholesterol (30-100) mg/dL HDL Cholesterol (40-60) mg/dL Heart Disease Risk Ratio Free T4 (0.78-2.19) ng/dL TSH 3rd Generation (0.470-4.680) mIU/L Urine Color (Yellow) Urine Appearance (Clear) Urine pH (4.6-8.0) Ur Specific [place] (1.005-1.030) Urine Protein (Negative) Urine Glucose (UA) (Negative) mg/dL Urine Ketones (Negative) Urine Blood (Negative) Urine Nitrite (Negative) Urine Bilirubin (Negative) Urine Urobilinogen (0.2) mg/dL Ur Leukocyte Esterase (Negative) U Hyaline Cast (Auto) (0-2) /LPF Urine Microscopic RBC (0-5) /HPF Urine Microscopic WBC (0-5) /HPF Ur Epithelial Cells (None Seen) /HPF Urine Bacteria (None Seen) /HPF Urine Culture Reflexed (NO) 07/01/23 07/01/23 07/01/23 Range/Units 13:25 13:25 14:34 WBC (4.0-10.5) x10^3/uL RBC (4.1-5.6) x10^6/uL Hgb (12.5-18.0) g/dL Hct (42-50) % MCV (78-100) fL MCH (26-32) pg MCHC (32-36) g/dL RDW (11.5-14.0) % Plt Count (150-450) x10^3/uL MPV (7.5-11.0) fL Gran % (36.0-66.0) % Immature Gran % (Auto) (0.00-0.4) % Nucleat RBC Rel Count (0.00-0.1) % Eos # (Auto) (0-0.5) x10^3/uL Immature Gran # (Auto) (0.00-0.03) x10^3u/L Absolute Lymphs (auto) (1.0-4.6) x10^3/uL Absolute Monos (auto) (0.0-1.3) x10^3/uL Absolute Nucleated RBC (0.00-0.01) x10^3u/L Lymphocytes % (24.0-44.0) % Monocytes % (0.0-12.0) % Eosinophils % (0.00-5.0) % Basophils % (0.0-0.4) % Absolute Granulocytes (1.4-6.9) x10^3/uL Basophils # (0-0.4) x10^3/uL PT 10.6 (9.4-12.5) SECONDS INR 0.97 (0.8-3.0) D-Dimer (0.0-0.50) mg/L Sodium (135-145) mmol/L Potassium (3.5-5.1) mmol/L Chloride (98-107) mmol/L Carbon Dioxide (22-30) mmol/L Anion Gap (5-15) MEQ/L BUN (9-20) mg/dL Creatinine (0.66-1.25) mg/dL Estimated GFR ML/MIN Glucose (74-106) mg/dL Calcium (8.4-10.2) mg/dL Magnesium (1.6-2.3) mg/dL Total Bilirubin (0.2-1.3) mg/dL AST (17-59) U/L ALT (0-50) U/L Alkaline Phosphatase (38-126) U/L Troponin I < 0.012 (0.000-0.033) ng/mL NT-Pro-B Natriuret Pep 2920 (<300) pg/mL Serum Total Protein (6.3-8.2) g/dL Albumin (3.5-5.0) g/dL Triglycerides (30-150) mg/dL Cholesterol (50-200) mg/dL LDL Cholesterol (30-100) mg/dL HDL Cholesterol (40-60) mg/dL Heart Disease Risk Ratio Free T4 (0.78-2.19) ng/dL TSH 3rd Generation 0.535 (0.470-4.680) mIU/L Urine Color (Yellow) Urine Appearance (Clear) Urine pH (4.6-8.0) Ur Specific [place] (1.005-1.030) Urine Protein (Negative) Urine Glucose (UA) (Negative) mg/dL Urine Ketones (Negative) Urine Blood (Negative) Urine Nitrite (Negative) Urine Bilirubin (Negative) Urine Urobilinogen (0.2) mg/dL Ur Leukocyte Esterase (Negative) U Hyaline Cast (Auto) (0-2) /LPF Urine Microscopic RBC (0-5) /HPF Urine Microscopic WBC (0-5) /HPF Ur Epithelial Cells (None Seen) /HPF Urine Bacteria (None Seen) /HPF Urine Culture Reflexed (NO) 07/01/23 07/01/23 07/01/23 Range/Units 14:34 18:05 21:25 WBC (4.0-10.5) x10^3/uL RBC (4.1-5.6) x10^6/uL Hgb (12.5-18.0) g/dL Hct (42-50) % MCV (78-100) fL MCH (26-32) pg MCHC (32-36) g/dL RDW (11.5-14.0) % Plt Count (150-450) x10^3/uL MPV (7.5-11.0) fL Gran % (36.0-66.0) % Immature Gran % (Auto) (0.00-0.4) % Nucleat RBC Rel Count (0.00-0.1) % Eos # (Auto) (0-0.5) x10^3/uL Immature Gran # (Auto) (0.00-0.03) x10^3u/L Absolute Lymphs (auto) (1.0-4.6) x10^3/uL Absolute Monos (auto) (0.0-1.3) x10^3/uL Absolute Nucleated RBC (0.00-0.01) x10^3u/L Lymphocytes % (24.0-44.0) % Monocytes % (0.0-12.0) % Eosinophils % (0.00-5.0) % Basophils % (0.0-0.4) % Absolute Granulocytes (1.4-6.9) x10^3/uL Basophils # (0-0.4) x10^3/uL PT (9.4-12.5) SECONDS INR (0.8-3.0) D-Dimer (0.0-0.50) mg/L Sodium (135-145) mmol/L Potassium (3.5-5.1) mmol/L Chloride (98-107) mmol/L Carbon Dioxide (22-30) mmol/L Anion Gap (5-15) MEQ/L BUN (9-20) mg/dL Creatinine (0.66-1.25) mg/dL Estimated GFR ML/MIN Glucose (74-106) mg/dL Calcium (8.4-10.2) mg/dL Magnesium (1.6-2.3) mg/dL Total Bilirubin (0.2-1.3) mg/dL AST (17-59) U/L ALT (0-50) U/L Alkaline Phosphatase (38-126) U/L Troponin I < 0.012 < 0.012 (0.000-0.033) ng/mL NT-Pro-B Natriuret Pep (<300) pg/mL Serum Total Protein (6.3-8.2) g/dL Albumin (3.5-5.0) g/dL Triglycerides (30-150) mg/dL Cholesterol (50-200) mg/dL LDL Cholesterol (30-100) mg/dL HDL Cholesterol (40-60) mg/dL Heart Disease Risk Ratio Free T4 1.64 (0.78-2.19) ng/dL TSH 3rd Generation (0.470-4.680) mIU/L Urine Color (Yellow) Urine Appearance (Clear) Urine pH (4.6-8.0) Ur Specific [place] (1.005-1.030) Urine Protein (Negative) Urine Glucose (UA) (Negative) mg/dL Urine Ketones (Negative) Urine Blood (Negative) Urine Nitrite (Negative) Urine Bilirubin (Negative) Urine Urobilinogen (0.2) mg/dL Ur Leukocyte Esterase (Negative) U Hyaline Cast (Auto) (0-2) /LPF Urine Microscopic RBC (0-5) /HPF Urine Microscopic WBC (0-5) /HPF Ur Epithelial Cells (None Seen) /HPF Urine Bacteria (None Seen) /HPF Urine Culture Reflexed (NO) 07/02/23 07/02/23 07/02/23 Range/Units 02:55 04:35 04:35 WBC 6.4 (4.0-10.5) x10^3/uL RBC 3.44 L (4.1-5.6) x10^6/uL Hgb 10.5 L (12.5-18.0) g/dL Hct 32.3 L (42-50) % MCV 93.9 (78-100) fL MCH 30.5 (26-32) pg MCHC 32.5 (32-36) g/dL RDW 14.4 H (11.5-14.0) % Plt Count 222 (150-450) x10^3/uL MPV 9.8 (7.5-11.0) fL Gran % 69.4 H (36.0-66.0) % Immature Gran % (Auto) 0.5 H (0.00-0.4) % Nucleat RBC Rel Count 0.0 (0.00-0.1) % Eos # (Auto) 0.13 (0-0.5) x10^3/uL Immature Gran # (Auto) 0.03 (0.00-0.03) x10^3u/L Absolute Lymphs (auto) 1.11 (1.0-4.6) x10^3/uL Absolute Monos (auto) 0.64 (0.0-1.3) x10^3/uL Absolute Nucleated RBC 0.00 (0.00-0.01) x10^3u/L Lymphocytes % 17.5 L (24.0-44.0) % Monocytes % 10.1 (0.0-12.0) % Eosinophils % 2.0 (0.00-5.0) % Basophils % 0.5 (0.0-0.4) % Absolute Granulocytes 4.41 (1.4-6.9) x10^3/uL Basophils # 0.03 (0-0.4) x10^3/uL PT (9.4-12.5) SECONDS INR (0.8-3.0) D-Dimer (0.0-0.50) mg/L Sodium 137 (135-145) mmol/L Potassium 3.6 (3.5-5.1) mmol/L Chloride 109 H (98-107) mmol/L Carbon Dioxide 22 (22-30) mmol/L Anion Gap 9.6 (5-15) MEQ/L BUN 14 (9-20) mg/dL Creatinine 0.79 (0.66-1.25) mg/dL Estimated GFR 103.6 ML/MIN Glucose 126 H (74-106) mg/dL Calcium 8.5 (8.4-10.2) mg/dL Magnesium (1.6-2.3) mg/dL Total Bilirubin 0.60 (0.2-1.3) mg/dL AST 18 (17-59) U/L ALT 14 (0-50) U/L Alkaline Phosphatase 54 (38-126) U/L Troponin I (0.000-0.033) ng/mL NT-Pro-B Natriuret Pep 1580 (<300) pg/mL Serum Total Protein 5.9 L (6.3-8.2) g/dL Albumin 2.8 L (3.5-5.0) g/dL Triglycerides (30-150) mg/dL Cholesterol (50-200) mg/dL LDL Cholesterol (30-100) mg/dL HDL Cholesterol (40-60) mg/dL Heart Disease Risk Ratio Free T4 (0.78-2.19) ng/dL TSH 3rd Generation (0.470-4.680) mIU/L Urine Color Dark Yellow (Yellow) Urine Appearance Clear (Clear) Urine pH 6.0 (4.6-8.0) Ur Specific [place] 1.020 (1.005-1.030) Urine Protein Negative (Negative) Urine Glucose (UA) Negative (Negative) mg/dL Urine Ketones Trace A (Negative) Urine Blood Negative (Negative) Urine Nitrite Negative (Negative) Urine Bilirubin Small A (Negative) Urine Urobilinogen 4.0 A (0.2) mg/dL Ur Leukocyte Esterase Negative (Negative) U Hyaline Cast (Auto) NONE SEEN (0-2) /LPF Urine Microscopic RBC 0-2 (0-5) /HPF Urine Microscopic WBC 0-2 (0-5) /HPF Ur Epithelial Cells None Seen (None Seen) /HPF Urine Bacteria None Seen (None Seen) /HPF Urine Culture Reflexed NO (NO) 07/02/23 07/02/23 Range/Units 04:35 04:47 WBC (4.0-10.5) x10^3/uL RBC (4.1-5.6) x10^6/uL Hgb (12.5-18.0) g/dL Hct (42-50) % MCV (78-100) fL MCH (26-32) pg MCHC (32-36) g/dL RDW (11.5-14.0) % Plt Count (150-450) x10^3/uL MPV (7.5-11.0) fL Gran % (36.0-66.0) % Immature Gran % (Auto) (0.00-0.4) % Nucleat RBC Rel Count (0.00-0.1) % Eos # (Auto) (0-0.5) x10^3/uL Immature Gran # (Auto) (0.00-0.03) x10^3u/L Absolute Lymphs (auto) (1.0-4.6) x10^3/uL Absolute Monos (auto) (0.0-1.3) x10^3/uL Absolute Nucleated RBC (0.00-0.01) x10^3u/L Lymphocytes % (24.0-44.0) % Monocytes % (0.0-12.0) % Eosinophils % (0.00-5.0) % Basophils % (0.0-0.4) % Absolute Granulocytes (1.4-6.9) x10^3/uL Basophils # (0-0.4) x10^3/uL PT (9.4-12.5) SECONDS INR (0.8-3.0) D-Dimer (0.0-0.50) mg/L Sodium (135-145) mmol/L Potassium (3.5-5.1) mmol/L Chloride (98-107) mmol/L Carbon Dioxide (22-30) mmol/L Anion Gap (5-15) MEQ/L BUN (9-20) mg/dL Creatinine (0.66-1.25) mg/dL Estimated GFR ML/MIN Glucose (74-106) mg/dL Calcium (8.4-10.2) mg/dL Magnesium 2.0 (1.6-2.3) mg/dL Total Bilirubin (0.2-1.3) mg/dL AST (17-59) U/L ALT (0-50) U/L Alkaline Phosphatase (38-126) U/L Troponin I (0.000-0.033) ng/mL NT-Pro-B Natriuret Pep (<300) pg/mL Serum Total Protein (6.3-8.2) g/dL Albumin (3.5-5.0) g/dL Triglycerides 66 (30-150) mg/dL Cholesterol 134 (50-200) mg/dL LDL Cholesterol 101 H (30-100) mg/dL HDL Cholesterol 25 L (40-60) mg/dL Heart Disease Risk Ratio 5.0 Free T4 (0.78-2.19) ng/dL TSH 3rd Generation (0.470-4.680) mIU/L Urine Color (Yellow) Urine Appearance (Clear) Urine pH (4.6-8.0) Ur Specific [place] (1.005-1.030) Urine Protein (Negative) Urine Glucose (UA) (Negative) mg/dL Urine Ketones (Negative) Urine Blood (Negative) Urine Nitrite (Negative) Urine Bilirubin (Negative) Urine Urobilinogen (0.2) mg/dL Ur Leukocyte Esterase (Negative) U Hyaline Cast (Auto) (0-2) /LPF Urine Microscopic RBC (0-5) /HPF Urine Microscopic WBC (0-5) /HPF Ur Epithelial Cells (None Seen) /HPF Urine Bacteria (None Seen) /HPF Urine Culture Reflexed (NO) Radiology Exams: Radiology Procedures Category Date Time Status CHEST 1 VIEW (PORTABLE) Stat Exams 07/01/23 13:26 Completed ECHO W/2D AND DOPPLER [US] Routine Exams 07/02/23 07:38 Taken Assessment/Plan (1) Atrial fibrillation with RVR Current Visit: Yes Status: Acute Code(s): I48.91 - UNSPECIFIED ATRIAL FIBRILLATION (2) Rectal cancer Current Visit: Yes Status: Acute Code(s): C20 - MALIGNANT NEOPLASM OF RECTUM (3) Smoker Current Visit: Yes Status: Acute Assessment & Plan: (1) Atrial fibrillation with RVR Current Visit: Yes Status: Acute Assessment & Plan: - ICU- Tele - Cardiology consult - Echo - Lovenox gave in ER - high risk for bleeding r/t colon ca will hold further blood thinners a this time. - SCD's - Started on cardizem gtt in ER- continue and titrate - Start Metoprolol PO when rate controlled - Keep K+>4 and Mg+ >2 - BMP, MG+ and TSH reviewed - + active rectal bleeding.- Hgb 11- monitor - Heart healthy diet - If he converts OK to make NPO after midnight for possible port placement tomorrow. - pt was to start chemo this week and is anxious to do so. - Oncologist Dr. Glass 07/01 - Pt continues to be on cardizem gtt- HR 90-100's in a-fib - Cardiology consult- appreciate recs - Lipid panel HDL 25, LDL 10- advised diet changes- cardiology may recommend statin d/t a-fib RVR - Bp soft last night- improved this AM Code(s): I48.91 - UNSPECIFIED ATRIAL FIBRILLATION (2) Rectal cancer Current Visit: Yes Status: Acute Assessment & Plan: - Was to have port placed 06/30 but found to be in A-fib RVR on Monitor - port placement to be rescheduled. - + rectal bleeding -Hgb 10.5 - No ASA or anticoagulants for now. Code(s): C20 - MALIGNANT NEOPLASM OF RECTUM (3) Smoker Current Visit: Yes Status: Acute Assessment & Plan: - advised cessation - nicotine patch VTE: Lovenox gave in ER will continue with SCD's as he is high risk for bleeding d/t rectal CA Next of KIN: Sibling- Li Esteves [phone] Code status: Full D/C plan: 1-2 days Code(s): F17.200 - NICOTINE DEPENDENCE, UNSPECIFIED, UNCOMPLICATED
[2023-07-02] MEDS: Lanoxin 0.125MG TABLET PO SCH (13:32)
[2023-07-03 05:09] LABS: Hematocrit 31.9 % (42-50); Hemoglobin 10.3 g/dL (12.5-18.0); Mean Cell Volume 94.7 fL (78-100); Mean Corpuscular Hemoglobin 30.6 pg (26-32); Mean Corpuscular Hgb Concent. 32.3 g/dL (32-36); Platelet Count 198 x10^3/uL (150-450); Red Blood Count 3.37 x10^6/uL (4.1-5.6); White Blood Count 5.5 x10^3/uL (4.0-10.5)
[2023-07-03 05:12] LABS: ALBUMIN 2.8 g/dL (3.5-5.0); ANION GAP 10.2 MEQ/L (5-15); BILIRUBIN,TOTAL 0.6 mg/dL (0.2-1.3); Calcium 8.7 mg/dL (8.4-10.2); Creatinine 1 0.79 mg/dL (0.66-1.25); EST GLOMERULAR FILTRATION RATE 103.6 ML/MIN; Potassium 3.9 mmol/L (3.5-5.1)
[2023-07-03 07:47] VITALS: TEMP 97.6
[2023-07-03] MEDS ORDERED: Lopressor 25MG Tab PO SCH (10:00)
--- NOTE | 2023-07-03 10:59 | PCM.DS ---
Discharge Summary Date of Admission: 07/01/23 17:19 Date of Discharge: 07/03/23 Admitting Physician: RODERICK VALADEZ MD Consults: Consults on Case 07/01/23 17:33 Consult Cardiology ROUTINE Primary Care Provider: JOHNSON BENAVIDEZ Allergies Allergies No Known Drug Allergies Allergy (Verified 07/01/23 13:24) Hospital Summary - Hospital Course Hospital Course: 07/01/23 is a 57 year old male with a PMHX of rectal cancer and daily smoker. He was sent to our emergency department from the preoperative holding area. He was going to have a Port-A-Cath placed today for rectal cancer treatment. However, he was noted to be tachycardic and a twelve-lead EKG was performed which showed a heart rate of 131 bpm, atrial fibrillation and incomplete right bundle branch block and left anterior fascicular block. He has no known history of atrial fibrillation. Patient denies chest pain. He denies shortness of breath. The patient's significant other provided additional, independent history. She stated that approximately 2 weeks ago, patient was seen in the radiology department for testing and was found to have a rapid heart at that time. However no other workup or discussion was made. Pt was started on a Cardizem gtt in the ER and will continue until converted. He does c/o of some rectal bleeding today, Hgb stable at 11. Will continue to monitor. He denies Abd pain, N/V/D. 07/02/23 Pt resting in bed. He continues to be on Cardizem gtt. He continues to be in A- fib but HR is lower. BP has been lower overnight 90/70's. Cardiology consulted and appreciate recs. Echo to be done today. Pt denies CP, SOB, abd. pain, N/V/D. 07/03/23 Pt resting in bed. Pt continues to be in a-fib with HR of 90-100"s. Denies CP or SOB. Cardiology discussed he was able to leave today. He will d/c with PO d igoxin and f/u in 1 week for possible cardioversion if needed. Discussed in detail with pt this am. He is ready to go home. He denies any further concerns at this time. - Vitals & Intake/Output Vital Signs: Vital Signs Temperature 97.6 F 07/03/23 07:47 Pulse Rate 91 H 07/03/23 10:00 Respiratory Rate 21 07/03/23 09:17 Blood Pressure 126/74 07/03/23 10:00 O2 Sat by Pulse Oximetry 95 07/03/23 08:59 Intake & Output: Intake & Output 06/30/23 07/01/23 07/02/23 07/03/23 11:59 11:59 11:59 11:59 Intake Total 600 240 Output Total 500 Balance 100 240 Weight 95.9 kg 98 kg - Lab Result Diagrams: 07/03/23 04:05 07/03/23 04:05 Lab Results-Last 24 Hrs: Lab Results-Last 24 Hours 07/03/23 07/03/23 Range/Units 04:05 04:05 WBC 5.5 (4.0-10.5) x10^3/uL RBC 3.37 L (4.1-5.6) x10^6/uL Hgb 10.3 L (12.5-18.0) g/dL Hct 31.9 L (42-50) % MCV 94.7 (78-100) fL MCH 30.6 (26-32) pg MCHC 32.3 (32-36) g/dL RDW 14.0 (11.5-14.0) % Plt Count 198 (150-450) x10^3/uL MPV 10.0 (7.5-11.0) fL Sodium 136 (135-145) mmol/L Potassium 3.9 (3.5-5.1) mmol/L Chloride 109 H (98-107) mmol/L Carbon Dioxide 21 L (22-30) mmol/L Anion Gap 10.2 (5-15) MEQ/L BUN 14 (9-20) mg/dL Creatinine 0.79 (0.66-1.25) mg/dL Estimated GFR 103.6 ML/MIN Glucose 111 H (74-106) mg/dL Calcium 8.7 (8.4-10.2) mg/dL Total Bilirubin 0.60 (0.2-1.3) mg/dL AST 18 (17-59) U/L ALT 15 (0-50) U/L Alkaline Phosphatase 49 (38-126) U/L Serum Total Protein 6.0 L (6.3-8.2) g/dL Albumin 2.8 L (3.5-5.0) g/dL - Radiology Exams Ordered Rad Exams-Entire Visit: Radiology Procedures Category Date Time Status CHEST 1 VIEW (PORTABLE) Stat Exams 07/01/23 13:26 Completed ECHO W/2D AND DOPPLER [US] Routine Exams 07/02/23 07:38 Taken - Procedures and Test Procedures and Tests throughout Hospitalization: Therapy Orders & Screens 07/01/23 12:16 EKG STAT Comment: Diagnosis: colon cancer 07/01/23 17:25 EKG REPEAT IN AM Comment: Diagnosis: colon cancer 07/01/23 17:58 Smoking Cessation Education ONCE Comment: Diagnosis: A-fib with RVRnew onset Smoking Status: Current every day smoker How long have you smoked: 25 years Have you smoked in the past 12 months: Yes Approximately how many cigarettes per day: 1 ppd Do you dip or chew tobacco: No Discharge Exam General Appearance: no apparent distress, alert Neurologic Exam: alert, oriented x 3, cooperative, normal mood/affect, nml cerebellar function, sensation nml, No motor deficits Eye Exam: PERRL, EOMI, eyes nml inspection Ears, Nose, Throat Exam: normal ENT inspection, pharynx normal, moist mucous membranes Neck Exam: normal inspection, non-tender, supple, full range of motion Respiratory Exam: normal breath sounds, lungs clear, No respiratory distress Cardiovascular Exam: normal heart sounds, irregular Gastrointestinal/Abdomen Exam: soft, No tenderness, No mass Male Genitalia Exam: deferred Rectal Exam: deferred Back Exam: normal inspection, normal range of motion, No CVA tenderness, No vertebral tenderness Extremity Exam: normal inspection, normal range of motion Skin Exam: normal color, warm, dry Final Diagnosis/Problem List - Final Discharge Diagnosis/Problem (1) Atrial fibrillation with RVR Current Visit: Yes Status: Acute Code(s): I48.91 - UNSPECIFIED ATRIAL FIBRILLATION (2) Rectal cancer Current Visit: Yes Status: Acute Code(s): C20 - MALIGNANT NEOPLASM OF RECTUM (3) Smoker Current Visit: Yes Status: Acute Assessment & Plan: (1) Atrial fibrillation with RVR Current Visit: Yes Status: Acute Assessment & Plan: - ICU- Tele - Cardiology consult - Echo - Lovenox gave in ER - high risk for bleeding r/t colon ca will hold further blood thinners a this time. - SCD's - Started on cardizem gtt in ER- continue and titrate - Start Metoprolol PO when rate controlled - Keep K+>4 and Mg+ >2 - BMP, MG+ and TSH reviewed - + active rectal bleeding.- Hgb 11- monitor - Heart healthy diet - If he converts OK to make NPO after midnight for possible port placement tomorrow. - pt was to start chemo this week and is anxious to do so. - Oncologist Dr. Glass 07/01 - Pt continues to be on cardizem gtt- HR 90-100's in a-fib - Cardiology consult- appreciate recs - Lipid panel HDL 25, LDL 10- advised diet changes- cardiology may recommend statin d/t a-fib RVR - Bp soft last night- improved this AM 07/02 - OK to d/c per cardiology- F/u in 1 week - Cardilogy recs yesterday per Dr Vidal, digoxin 0.25 mg PO q6h for a total of 4 doses. After that pt needs to start on digoxin 0.25 [address] PO once daily. Dr Vidal also stated that, based on the pt's CHADS-VASC score that no anticoagulation is recommended at this time. Code(s): I48.91 - UNSPECIFIED ATRIAL FIBRILLATION (2) Rectal cancer Current Visit: Yes Status: Acute Assessment & Plan: - Was to have port placed 06/30 but found to be in A-fib RVR on Monitor - port placement to be rescheduled. - + rectal bleeding -Hgb 10.5 - No ASA or anticoagulants for now. Code(s): C20 - MALIGNANT NEOPLASM OF RECTUM (3) Smoker Current Visit: Yes Status: Acute Assessment & Plan: - advised cessation - nicotine patch Code(s): F17.200 - NICOTINE DEPENDENCE, UNSPECIFIED, UNCOMPLICATED - Discharge Discharge Date: 07/03/23 Disposition: Home, Self-Care Condition: Stable Prescriptions: New Digoxin 0.125 mg Tablet [Lanoxin 0.125MG TABLET] 0.25 mg PO DAILY 14 Days #14 tablet Continue Morphine Sulfate Cr 30 mg [Ms Contin 30 mg] 30 mg PO BID Hydrocodone/Acetaminophen [Hydrocodone-Acetamin 5-325 mg] 1 tab PO Q6H PRN PRN PRN Reason: Pain Follow up with: JOHNSON BENAVIDEZ [Primary Care Provider] - MICHAEL VIDAL MD [CONSULTING PHYSICIAN] - 07/09/23 11:00 am
[2023-07-03 11:40] VITALS: O2SAT 98
[2023-07-03 12:15] VITALS: BP 124/91; PULSE 112; RESP 24
[2023-07-04] MEDS ORDERED: Lanoxin 0.125MG TABLET PO SCH (10:00)
== END 2023-07-03 12:56 | disposition home or self-care (01) ==
LOC: ED 13:23 → EDSTATUS 13:23 → ICU 17:19
PROVIDERS: ADMIT Internal Medicine; ATTEND Internal Medicine
DX: I48.20 Chronic atrial fibrillation, unspecified (principal); C20 Malignant neoplasm of rectum; F17.200 Nicotine dependence, unspecified, uncomplicated
CPT/HCPCS: 36000; 36415; 71045; 80053; 80061; 81001; 83721; 83735; 83880; 84439; 84443; 84484; 85025; 85027; 85379; 85610; 93005; 93041; 93306; 94760; 96372; 96374; 96375; 99285; 99291; Q3014; J0690; J1650; J2270; J2405; A9270-GY

== ENCOUNTER 2023-09-27 02:08 | Observation (INO) | payer BC ==
[2023-09-27] MEDS ORDERED: Cardizem IV 50 MG/10 ML IV ONE ×2 (02:30→05:50)
[2023-09-27] MEDS: Cardizem IV 50 MG/10 ML IV ONE ×2 (02:31→06:01)
[2023-09-27 02:38] LABS: Absolute Neutrophil Ct (ANC) 1.81 x10^3/uL (1.78-5.38); BASOPHIL % 0.8 % (0.2-1.2); Basophil (Absolute #) 0.02 x10^3/uL (0.01-0.08); Eosinophil % 1.9 % (0.8-7.0); Eosinophil (Absolute #) 0.05 x10^3/uL (0.04-0.54); Hematocrit 32.5 % (40.1-51.0); Hemoglobin 10.3 g/dL (13.7-17.5); IMMATURE GRAN # 0.02 x10^3u/L (0.001-0.031); IMMATURE GRAN % 0.8 % (0.001-0.429); Lymphocyte (Absolute #) 0.36 x10^3/uL (1.32-3.57); Lymphocytes % 13.8 % (21.8-53.1); Mean Corpuscular Hemoglobin 31.7 pg (25.7-32.2); Mean Corpuscular Hgb Concent. 31.7 g/dL (32.3-36.5); Mean Platelet Volume 10.1 fL (9.4-12.4); Monocyte (Absolute #) 0.35 x10^3/uL (0.30-0.82); Monocytes % 13.4 % (5.3-12.2); Neutrophil % 69.3 % (34.0-67.9); Platelet Count 112 x10^3/uL (163-337); Red Blood Count 3.25 x10^6/uL (4.63-6.08); Red Cell Distribution Width 20.1 % (11.6-14.4); White Blood Count 2.6 x10^3/uL (4.23-9.07)
[2023-09-27] MEDS ORDERED: ENOXAPARIN SODIUM SQ ONE (02:46)
--- NOTE | 2023-09-27 02:49 | ERPHSYRPT ---
- History of Present Illness Time Seen by Provider: 09/27/23 02:20 Source: patient, family Exam Limitations: no limitations Patient Subjective Stated Complaint: pt states that he has been short of breath for the past 3 days. pt states history of a. fib Triage Nursing Assessment: pt ambulated into the er; pt is axo x4; c/o SOB; pt states 7/10 pain to BLE; skin pale, warm, dry; clear lung sounds in lobes; irregular heart tone present; heart rate 144 -166 on arrival; strong rosette radial pulses; weak pedal pulses; non pitting BLE 3+ edema; tachycardic Physician History: This is a 57-year-old white female patient who came in by private vehicle and has known atrial fibrillation that was diagnosed 2 months ago. In the last 3 days he has noticed his heart racing and he has been more short of breath in the last 3 days. Patient denies chest pain. Patient room air oxygen saturation level is 97 to 98%. Patient's systolic blood pressure on arrival to emergency department is 119. I reviewed the [facility] admission and discharge notes from dates 07/01/2023 to 07/03/2023. The discharge note states that the patient is to be on digoxin and based on the patient's Justice-Vasc score no coagulation therapy necessary. Patient's significant other stated that the pharmacy took a few days before they actually were able to fill the anticoagulation medication. There was no other medication at the pharmacy for t his patient per patient and the patient's significant other. Therefore the patient was not on digoxin. He has not been on any medication and has no known drug allergies. Patient never followed up with his primary care provider or with the home office claims examiner. The patient had received radiation treatments few weeks ago to treat rectal cancer. In addition, he received chemotherapy. He states he was focused more on that than the heart issue. He also has noticed increased swelling in bilateral lower extremities which he did not have 2 months ago. Timing/Duration: day(s) (3), worse Chest Pain Radiation: no radiation Severity of Pain-Max: none Severity of Pain-Current: none Nitro Today/Relief: no nitro taken today Aspirin Treatment Today: no aspirin today Associated Symptoms: shortness of breath, other (Palpitations) Prior Chest Pain/Cardiac Workup: echocardiography Allergies/Adverse Reactions: No Known Drug Allergies Allergy (Verified 09/27/23 02:11) Home Medications: No Reportable Medications [No Reported Medications] 09/27/23 [History] Hx Tetanus, Diphtheria Vaccination/Date Given: Yes Hx Influenza Vaccination/Date Given: No Hx Pneumococcal Vaccination/Date Given: No Travel Risk - International Travel Have you traveled outside of the country in past 3 weeks: No - Emerging Infectious Disease Are you exhibiting symptoms associated with any current EIDs: Yes Symptoms: Shortness of Breath - Review of Systems Constitutional: No Symptoms Eyes: No Symptoms Ears, Nose, & Throat: No Symptoms Respiratory: Dyspnea Cardiac: Palpitations Abdominal/Gastrointestinal: No Symptoms Genitourinary Symptoms: No Symptoms Musculoskeletal: No Symptoms Skin: No Symptoms Neurological: No Symptoms Psychological: No Symptoms Endocrine: No Symptoms Hematologic/Lymphatic: No Symptoms Immunological/Allergic: No Symptoms All Other Systems: Reviewed and Negative - Past Medical History Pertinent Past Medical History: Yes Neurological History: No Pertinent History ENT History: No Pertinent History Cardiac History: No Pertinent History Respiratory History: No Pertinent History Endocrine Medical History: No Pertinent History Musculoskeletal History: No Pertinent History GI Medical History: Gallbladder Disease History: No Pertinent History Psycho-Social History: No Pertinent History Male Reproductive Disorders: No Pertinent History Other Medical History: rectal cancer - Past Surgical History Past Surgical History: Yes Neuro Surgical History: No Pertinent History Cardiac: No Pertinent History Respiratory: No Pertinent History Gastrointestinal: Cholecystectomy Genitourinary: No Pertinent History Musculoskeletal: No Pertinent History Male Surgical History: No Pertinent History Other Surgical History: T&A. teeth extraction, bile duct surgery - Social History Smoking Status: Current every day smoker How long have you smoked: 25 years Exposure to second hand smoke: Yes Drug Use: none Patient Lives Alone: No - Social Determinants of Health Will the patient participate in the screening: Declined to provide - Nursing Vital Signs Nursing Vital Signs: Initial Vital Signs Temperature 97.9 F 09/27/23 02:12 Pulse Rate 144 H 09/27/23 02:12 Respiratory Rate 30 H 09/27/23 02:12 Blood Pressure 119/89 09/27/23 02:12 O2 Sat by Pulse Oximetry 99 09/27/23 02:12 Pain Scale Pain Intensity 5 - Physical Exam General Appearance: no apparent distress, alert, anxiety Eye Exam: PERRL/EOMI, eyes nml inspection Ears, Nose, Throat Exam: normal ENT inspection, moist mucous membranes Neck Exam: normal inspection, non-tender, supple, full range of motion Respiratory Exam: normal breath sounds, lungs clear, airway intact, No chest tenderness, No respiratory distress Cardiovascular Exam: tachycardia, irregular Gastrointestinal/Abdomen Exam: soft, normal bowel sounds, No tenderness Rectal Exam: not done Back Exam: normal inspection, normal range of motion, No CVA tenderness, No vertebral tenderness Extremity Exam: normal range of motion, pelvis stable, pedal edema (Bilateral feet ankle and lower legs below the knee) Neurologic Exam: alert, oriented x 3, cooperative, 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 Patient's QTc is 468.) Ordered Tests: Active Orders 24 hr Category Date Time Status EKG-ER Only STAT Care 09/27/23 02:27 Active IV Insertion STAT Care 09/27/23 02:27 Active Pulse Oximetry (ED) STAT Care 09/27/23 02:27 Active CHEST WITH CONTRAST [CT] Stat Exams 09/27/23 03:54 Completed CBC W DIFF Stat Lab 09/27/23 02:34 Completed CMP Stat Lab 09/27/23 02:34 Completed D-DIMER QUANTITATIVE Stat Lab 09/27/23 02:45 Completed MAGNESIUM Stat Lab 09/27/23 02:34 Completed NT PRO BNPII Stat Lab 09/27/23 02:34 Completed PROTIME WITH INR Stat Lab 09/27/23 02:34 Completed PTT Stat Lab 09/27/23 02:34 Completed TROPONIN Q4H Lab 09/27/23 02:34 Completed TROPONIN Q4H Lab 09/27/23 06:30 Ordered TROPONIN Q4H Lab 09/27/23 10:30 Ordered Medication Summary Generic Name Dose Route Start Last Admin Trade Name Freq PRN Reason Stop Dose Admin Diltiazem HCl 100 mls @ 5 mls/hr 09/27/23 02:41 09/27/23 03:21 Cardizem Drip 100 Mg/100 Ml D5w IV 10/27/23 02:40 7.5 mg/hr .Q20H PRN 7.5 mls/hr HEART RATE/ A-FIB Titration Protocol 5 MG/HR Discontinued Medications Generic Name Dose Route Start Last Admin Trade Name Javiq PRN Reason Stop Dose Admin Diltiazem HCl 20 mg 09/27/23 02:27 09/27/23 02:31 Diltiazem Hcl Iv 5 Mg/Ml Vial IV 09/27/23 02:28 20 mg STAT ONE Administration Diltiazem HCl Confirm 09/27/23 02:30 Diltiazem Hcl Iv 5 Mg/Ml Vial Administered 09/27/23 02:31 Dose 50 mg IV .STK-MED ONE Enoxaparin Sodium 100 mg 09/27/23 02:42 09/27/23 02:51 Enoxaparin Sodium 120 Mg/0.8 Ml Syringe SQ 09/27/23 02:43 100 mg STAT STA Administration Enoxaparin Sodium Confirm 09/27/23 02:46 Enoxaparin Sodium 120 Mg/0.8 Ml Syringe Administered 09/27/23 02:47 Dose 120 mg SQ .STK-MED ONE Furosemide 40 mg 09/27/23 05:05 09/27/23 05:13 Furosemide 40 Mg/4 Ml Vial IV 09/27/23 05:06 40 mg STAT ONE Administration Furosemide Confirm 09/27/23 05:12 Furosemide 40 Mg/4 Ml Vial Administered 09/27/23 05:13 Dose 40 mg .ROUTE .STK-MED ONE Nicotine 21 mg 09/27/23 05:25 09/27/23 05:33 Nicotine 21 Mg/Patch Patch TOP 09/27/23 05:26 21 mg STAT ONE Administration Lab/Rad Data: Laboratory Result Diagrams 09/27/23 02:34 09/27/23 02:34 Laboratory Results 09/27/23 09/27/23 09/27/23 Range/Units 02:45 02:34 02:34 WBC (4.23-9.07) x10^3/uL RBC (4.63-6.08) x10^6/uL Hgb (13.7-17.5) g/dL Hct (40.1-51.0) % MCV (79.0-92.2) fL MCH (25.7-32.2) pg MCHC (32.3-36.5) g/dL RDW (11.6-14.4) % Plt Count (163-337) x10^3/uL MPV (9.4-12.4) fL Gran % (34.0-67.9) % Immature Gran % (Auto) (0.001-0.429) % Nucleat RBC Rel Count (0.00-0.2) % Eos # (Auto) (0.04-0.54) x10^3/uL Immature Gran # (Auto) (0.001-0.031) x10^3u/L Absolute Lymphs (auto) (1.32-3.57) x10^3/uL Absolute Monos (auto) (0.30-0.82) x10^3/uL Absolute Nucleated RBC (0.00-0.012) x10^3u/L Lymphocytes % (21.8-53.1) % Monocytes % (5.3-12.2) % Eosinophils % (0.8-7.0) % Basophils % (0.2-1.2) % Absolute Granulocytes (1.78-5.38) x10^3/uL Basophils # (0.01-0.08) x10^3/uL PT (9.4-12.5) SECONDS INR (0.8-3.0) APTT (25.1-36.5) SECONDS D-Dimer 1.64 H* (0.0-0.50) mg/L Sodium (135-145) mmol/L Potassium (3.5-5.1) mmol/L Chloride (98-107) mmol/L Carbon Dioxide (22-30) mmol/L Anion Gap (5-15) MEQ/L BUN (9-20) mg/dL Creatinine (0.66-1.25) mg/dL Estimated GFR ML/MIN Glucose (74-106) mg/dL Calcium (8.4-10.2) mg/dL Magnesium (1.6-2.3) mg/dL Total Bilirubin (0.2-1.3) mg/dL AST (17-59) U/L ALT (0-50) U/L Alkaline Phosphatase (38-126) U/L Troponin I (0.000-0.033) ng/mL NT-Pro-B Natriuret Pep 2520 (<300) pg/mL Serum Total Protein (6.3-8.2) g/dL Albumin (3.5-5.0) g/dL Digoxin < 0.4 L (0.8-1.9) ng/mL Slides for Path Review 09/27/23 09/27/23 09/27/23 Range/Units 02:34 02:34 02:34 WBC (4.23-9.07) x10^3/uL RBC (4.63-6.08) x10^6/uL Hgb (13.7-17.5) g/dL Hct (40.1-51.0) % MCV (79.0-92.2) fL MCH (25.7-32.2) pg MCHC (32.3-36.5) g/dL RDW (11.6-14.4) % Plt Count (163-337) x10^3/uL MPV (9.4-12.4) fL Gran % (34.0-67.9) % Immature Gran % (Auto) (0.001-0.429) % Nucleat RBC Rel Count (0.00-0.2) % Eos # (Auto) (0.04-0.54) x10^3/uL Immature Gran # (Auto) (0.001-0.031) x10^3u/L Absolute Lymphs (auto) (1.32-3.57) x10^3/uL Absolute Monos (auto) (0.30-0.82) x10^3/uL Absolute Nucleated RBC (0.00-0.012) x10^3u/L Lymphocytes % (21.8-53.1) % Monocytes % (5.3-12.2) % Eosinophils % (0.8-7.0) % Basophils % (0.2-1.2) % Absolute Granulocytes (1.78-5.38) x10^3/uL Basophils # (0.01-0.08) x10^3/uL PT 10.6 (9.4-12.5) SECONDS INR 0.97 (0.8-3.0) APTT 26.3 (25.1-36.5) SECONDS D-Dimer (0.0-0.50) mg/L Sodium 140 (135-145) mmol/L Potassium 3.9 (3.5-5.1) mmol/L Chloride 109 H (98-107) mmol/L Carbon Dioxide 24 (22-30) mmol/L Anion Gap 10.4 (5-15) MEQ/L BUN 11 (9-20) mg/dL Creatinine 0.65 L (0.66-1.25) mg/dL Estimated GFR 109.9 ML/MIN Glucose 99 (74-106) mg/dL Calcium 8.7 (8.4-10.2) mg/dL Magnesium 2.0 (1.6-2.3) mg/dL Total Bilirubin 0.90 (0.2-1.3) mg/dL AST 24 (17-59) U/L ALT 23 (0-50) U/L Alkaline Phosphatase 76 (38-126) U/L Troponin I < 0.012 (0.000-0.033) ng/mL NT-Pro-B Natriuret Pep (<300) pg/mL Serum Total Protein 6.2 L (6.3-8.2) g/dL Albumin 3.3 L (3.5-5.0) g/dL Digoxin (0.8-1.9) ng/mL Slides for Path Review 09/27/23 Range/Units 02:34 WBC 2.6 L (4.23-9.07) x10^3/uL RBC 3.25 L (4.63-6.08) x10^6/uL Hgb 10.3 L (13.7-17.5) g/dL Hct 32.5 L (40.1-51.0) % MCV 100.0 H (79.0-92.2) fL MCH 31.7 (25.7-32.2) pg MCHC 31.7 L (32.3-36.5) g/dL RDW 20.1 H (11.6-14.4) % Plt Count 112 L (163-337) x10^3/uL MPV 10.1 (9.4-12.4) fL Gran % 69.3 H (34.0-67.9) % Immature Gran % (Auto) 0.8 H (0.001-0.429) % Nucleat RBC Rel Count 0.0 (0.00-0.2) % Eos # (Auto) 0.05 (0.04-0.54) x10^3/uL Immature Gran # (Auto) 0.02 (0.001-0.031) x10^3u/L Absolute Lymphs (auto) 0.36 L (1.32-3.57) x10^3/uL Absolute Monos (auto) 0.35 (0.30-0.82) x10^3/uL Absolute Nucleated RBC 0.00 (0.00-0.012) x10^3u/L Lymphocytes % 13.8 L (21.8-53.1) % Monocytes % 13.4 H (5.3-12.2) % Eosinophils % 1.9 (0.8-7.0) % Basophils % 0.8 (0.2-1.2) % Absolute Granulocytes 1.81 (1.78-5.38) x10^3/uL Basophils # 0.02 (0.01-0.08) x10^3/uL PT (9.4-12.5) SECONDS INR (0.8-3.0) APTT (25.1-36.5) SECONDS D-Dimer (0.0-0.50) mg/L Sodium (135-145) mmol/L Potassium (3.5-5.1) mmol/L Chloride (98-107) mmol/L Carbon Dioxide (22-30) mmol/L Anion Gap (5-15) MEQ/L BUN (9-20) mg/dL Creatinine (0.66-1.25) mg/dL Estimated GFR ML/MIN Glucose (74-106) mg/dL Calcium (8.4-10.2) mg/dL Magnesium (1.6-2.3) mg/dL Total Bilirubin (0.2-1.3) mg/dL AST (17-59) U/L ALT (0-50) U/L Alkaline Phosphatase (38-126) U/L Troponin I (0.000-0.033) ng/mL NT-Pro-B Natriuret Pep (<300) pg/mL Serum Total Protein (6.3-8.2) g/dL Albumin (3.5-5.0) g/dL Digoxin (0.8-1.9) ng/mL Slides for Path Review YES - Progress Progress: improved, re-examined Air Movement: good Progress Note: 09/27/23 02:50 My medical decision making and the assignment of moderate to high complexity was based on the patient's past medical history, the patient's medication list, the patient drug allergy list, history present illness and physical findings on examination. The workup in this patient includes twelve-lead EKG, intravenous line patient, Cardizem with Cardizem drip, CBC, CMP, BNP, troponin level, Lovenox 100 mg subcutaneously. Differential diagnosis includes but is not limited to atrial fibrillation with RVR, other arrhythmia disorders, electrolyte abnormalities, CHF exacerbation, myocardial infarction, noncompliance with medication regimen 09/27/23 05:06 I interpreted the patient's laboratory data results. The patient is mildly anemic with a hemoglobin approximately 10. He also has a 1.6 D-dimer and I ordered a CT of the chest with contrast. His BNP is 2520. CT scan of the chest with contrast shows no evidence for pulmonary embolus. There is bilateral pleural effusions right side greater than left. There is bilateral emphysematous changes in the lungs. 09/27/23 05:38 I spoke with telehospitalist Dr. Rivas. I reviewed the patient history present illness, chief complaint and physical findings on examination as well as the results of our workup including the EKG and radiographic studies. We will place him in intensive care unit, full admission and continue the Cardizem drip Love nox and Lasix. Blood Culture(s) Obtained: No Antibiotics given: No Counseled pt/family regarding: lab results, diagnosis, rad results Medical Desision Making - Independent Historian Additional History obtained from: Relative/friend - Discussion of managment Care discussed with:: hospitalist Reviewed:: Test results, Need for additional workup Agreed on:: Treatment plan, place in obs - Diagnostic Testing Diagnostic test were ordered, analyzed, and reviewed by me: Yes - Risk of complications The pt has a high risk of morbidity or mortality based on: Decision regarding hospitilization or escalation of hosp level of care - Departure Departure Disposition: In-patient Admission Clinical Impression: Leg swelling, Shortness of breath, Atrial fibrillation with RVR, CHF exacerbation, Noncompliance with medication regimen Condition: Fair Critical Care Time: Yes Critical Care Time(excluding separately billable procedures): Critical 30-74 mins (45 minutes) Referrals: JOHNSON BENAVIDEZ [Primary Care Provider] - Follow up/PCP as directed Instructions: Heart Failure
[2023-09-27] MEDS: ENOXAPARIN SODIUM SQ STA (02:51)
[2023-09-27 02:52] LABS: ALBUMIN 3.3 g/dL (3.5-5.0); ANION GAP 10.4 MEQ/L (5-15); BILIRUBIN,TOTAL 0.9 mg/dL (0.2-1.3); Calcium 8.7 mg/dL (8.4-10.2); Creatinine 1 0.65 mg/dL (0.66-1.25); EST GLOMERULAR FILTRATION RATE 109.9 ML/MIN; Potassium 3.9 mmol/L (3.5-5.1); Total Protein 6.2 g/dL (6.3-8.2)
[2023-09-27 02:53] LABS: INR 0.97 (0.8-3.0); PROTIME 10.6 SECONDS (9.4-12.5); PTT 26.3 SECONDS (25.1-36.5)
[2023-09-27] MEDS: CARDIZEM DRIP 100 MG/100 ML D5W 100 ML IV PRN (02:53)
[2023-09-27 04:31] LABS: Slide Review 1 YES
--- NOTE | 2023-09-27 05:01 | XRAY ---
CLINICAL HISTORY: SOB, elevated d-dimer COMPARISON: None. TECHNIQUE: Contiguous axial PE protocol CT images of the chest were acquired with the administration 80cc Isovue 370 of intravenous contrast to visualize the pulmonary arteries and their branches. Coronal and sagittal reconstructions were obtained. One of the following dose reduction techniques was utilized for this exam: Automated exposure control, adjustment of the mA and/or kV according to patient size, and use of iterative reconstruction. DLP: 825.70 mGy-cm. One of these 3D techniques was utilized: Maximum Intensity Pixel (MIP), 3D Reconstructed Images, Volume Rendered Images, Surface Shaded Rendering. FINDINGS: Right and left main pulmonary arteries as well as segmental branches without evidence of any filling defect. No evidence of gross pulmonary arterial thrombosis was identified. Mildly prominent pulmonary trunk measuring about 3 cm. Mild bilateral pleural effusion, more on the right side with underlying lower lobar atelectatic changes. Centrilobular and paraseptal emphysematous changes predominantly involving both upper lobes. An 8mm calcified right lower lobe nodule, along with calcified right hilar and subcarinal lymph nodes were seen as likely granulomatous. Bilateral atelectatic bands with smooth basal pulmonary interstitial septal thickening. Right upper lobe anterior subpleural small patchy areas/atelectasis were seen. Heart size is normal. There is no pericardial effusion. Mildly prominent mediastinal lymph nodes are seen. There is no definite mass lesion in the chest wall. The right port-A-cath is seen with the tip in the SVC. Aortic atheromatous calcification. Degenerative changes of the spine. Scanned abdominal cuts show splenic calcified granulomas. IMPRESSION: 1. No evidence of acute pulmonary arterial thromboembolic disease. 2. Mild bilateral pleural effusion, more on the right side with underlying lower lobar atelectatic changes. 3. Centrilobular and paraseptal emphysematous changes predominantly involving both upper lobes. 4. The rest of the findings as detailed. Electronically Signed by: Bo Sy MD. (09/27/2023 04:57:46 EDT)
[2023-09-27] MEDS ORDERED: Lasix 40 MG/4 ML ONE (05:12)
[2023-09-27] MEDS: Lasix 40 MG/4 ML IV ONE (05:13)
[2023-09-27] MEDS: Nicoderm CQ 21 MG TOP ONE (05:33)
[2023-09-27] MEDS ORDERED: LOPRESSOR INJECTION IV ONE (05:50)
[2023-09-27] MEDS ORDERED: Sodium Chloride 0.9% 1000 ML 1,000 ML ONE ×2 (06:00→06:08)
[2023-09-27] MEDS: LOPRESSOR INJECTION IV ONE (06:01)
[2023-09-27] MEDS: Sodium Chloride 0.9% 1000 ML 1,000 ML IV SCH (06:08)
[2023-09-27] MEDS ORDERED: TYLENOL 325 MG PO PRN (06:49)
[2023-09-27] MEDS ORDERED: Zofran 4 MG/2 ML VIAL IV PRN (06:49)
[2023-09-27] MEDS: Lopressor 50 MG PO SCH (07:08)
--- NOTE | 2023-09-27 10:50 | XRAY ---
CLINICAL HISTORY: BLE swelling COMPARISON: None. TECHNIQUE: Right and Left lower extremity venous Doppler was performed. One or more of the following were performed- spectral analysis, resistive index, waveform analysis, and pulsed Doppler. FINDINGS: Right and Left lower limb venous system was examined. The veins scanned included the following: Common femoral, superficial femoral, popliteal and posterior tibial veins. On the B mode examination, the veins are compressible. No evidence of an intraluminal thrombus. On the color and spectral Doppler mode, there is phasic and spontaneous flow in the vessels. Additional Findings: No evidence of superficial vein thrombosis. IMPRESSION: No evidence of thrombosis of the visualized right and left lower extremity veins at this time of exam. No evidence of deep vein thrombosis. Normal venous flow characteristics and compressibility in the common femoral, femoral, popliteal, anterior tibial, posterior tibial, and peroneal veins. RECOMMENDATIONS: Clinical correlation with symptoms and further evaluation as indicated. Follow-up imaging may be recommended based on clinical scenario or if significant abnormalities are identified. Electronically Signed by: Josie Mendoza MD. (09/27/2023 10:46:04 EDT)
--- NOTE | 2023-09-27 11:17 | PCM.CONS ---
History of Present Illness - Date of Consult Consulting Special Education Aide: RUBIN HORAN MD Requesting Provider: Attending Provider: TC IBANEZ MD Primary Care Provider: PCP: JOHNSON BENAVIDEZ - Consult Narrative Reason for Consult: afib w/ RVR HPI: 57 yo M w/ PMHx of afib and rectal cancer who presents for evaluation of shortness of breath and lower extremity edema for the past 2-3 days. The patient reports he thought it would improve on its own but ultimately presented last night when he couldn't breath. He was found to be in afib w/ RVR with rates in the 140s. He had a similar presentation in June for afib w/ RVR which was rate controlled. He says since that time he's felt completely normal. He was prescribed digoxin only as an outpatient; however, this was never filled. He reports he was more concerned about dealing with his malignancy and thus didn't' follow up with outpatient cardiology or his PCP (or get his meds filled). He was also no placed on anticoagulation given concern for rectal bleeding with his malignancy and low risk of CVA. He's currently rate controlled on dilt gtt and has received intermittent dosing of metoprolol. He reports feeling back to his normal self and has no further symptoms. He underwent CT PE which revealed no thrombus. EKG from overnight reviewed which showed afib at 135 and RBBB cc:: The requesting physician will be sent a copy of the consult. Review of Systems - ROS Constitutional: Fatigue, Malaise Eyes (ROS): No Symptoms Ears, Nose, & Throat: No Symptoms Respiratory: Dyspnea, Dyspnea on Exertion (MONTESINOS) Cardiac: Edema Abdominal/Gastrointestinal: Hematochezia Musculoskeletal: Other (lower extremity edema R>L) Skin: No Symptoms Neurological: No Symptoms Psychological: No Symptoms Endocrine: No Symptoms Hematologic/Lymphatic: No Symptoms - Past Medical History Past Medical History: Yes Neurological History: No Pertinent History ENT History: No Pertinent History Cardiac History: Arrhythmia, Hypertension Respiratory History: Pneumonia Endocrine Medical History: No Pertinent History Musculoskelatal History: No Pertinent History GI Medical History: Gallbladder Disease History: No Pertinent History Pyscho-Social History: No Pertinent History Male Reproductive Disorders: No Pertinent History Comment: rectal cancer - Past Surgical History Past Surgical History: Yes Neuro Surgical History: No Pertinent History Cardiac History: No Pertinent History Respiratory Surgery: No Pertinent History GI Surgical History: Cholecystectomy Genitourinary Surgical Hx: No Pertinent History Musculskeletal Surgical Hx: No Pertinent History Male Surgical History: No Pertinent History Other Surgical History: T&A. teeth extraction, bile duct surgery - Social History Smoking Status: Current every day smoker How long have you smoked: "30 years" Exposure to second hand smoke: Yes Alcohol: None Drug Use: none - Social Determinants of Health Will the patient participate in the screening: Declined to provide Do you worry about a steady place to live?: No In the past 12 months,have you had to go without utilities?: No Have you or anyone in your house had to go without enough: No Transportation Issues: No Has anyone in your support network made you feel unsafe?: No Does the patient want assistance with any of the above?: No Medications & Allergies Home Medications: Home Medication List Ibuprofen 200 mg [Motrin 200 mg] 600 mg PO Q6HPRN PRN 09/27/23 [History Confirmed 09/27/23] Allergies/Adverse Reactions: Allergies Allergy/AdvReac Type Severity Reaction Status Date / Time No Known Drug Allergies Allergy Verified 09/27/23 02:11 Exam - Vitals Vital Signs: Vital Signs - 24 hr Temp Pulse Resp BP BP Pulse Ox 09/27/23 11:05 89 22 93/57 09/27/23 10:04 90 23 83/55 09/27/23 09:10 98.3 F 95 H 17 107/74 98 09/27/23 08:58 77 27 H 91/68 09/27/23 08:00 97.7 F 89 21 97/68 94 L 09/27/23 07:45 97.7 F 120 H 20 107/74 97 09/27/23 06:53 96 H 16 108/80 09/27/23 06:20 99/67 09/27/23 06:10 109 H 22 111/72 97 09/27/23 06:07 106 H 24 98/73 98 09/27/23 06:00 111 H 21 105/81 97 09/27/23 05:53 90 20 111/72 09/27/23 05:50 108 H 27 H 98/82 97 09/27/23 05:46 97 09/27/23 05:40 114 H 20 115/86 98 09/27/23 05:31 118 H 28 H 118/87 98 09/27/23 05:20 125 H 23 98/75 96 09/27/23 05:11 122 H 24 104/56 98 09/27/23 05:00 113 H 22 119/79 95 09/27/23 04:53 113 H 20 98/75 09/27/23 04:50 102 H 21 112/82 98 09/27/23 04:40 113 H 22 99/83 98 09/27/23 04:30 129 H 17 112/75 99 09/27/23 04:20 112 H 18 115/71 99 09/27/23 04:10 119 H 20 114/80 100 09/27/23 04:00 120 H 18 113/80 100 09/27/23 03:53 128 H 19 104/56 09/27/23 03:40 94/76 09/27/23 03:30 119 H 24 108/79 99 09/27/23 03:21 111 H 19 104/71 09/27/23 03:20 138 H 22 104/71 99 09/27/23 03:10 132 H 13 106/78 98 09/27/23 03:00 105 H 21 115/79 98 09/27/23 02:53 120 H 12 105/73 09/27/23 02:50 162 H 18 105/73 97 09/27/23 02:40 106 H 3 L 116/77 98 09/27/23 02:38 117 H 25 H 100/80 97 09/27/23 02:30 107 H 22 106/81 98 09/27/23 02:12 97.9 F 144 H 30 H 119/89 99 General:: alert and oriented x 4, no acute distress HEENT: PERRLA, EOMI Cardiovascular Exam: normal heart sounds, irregular, capillary refill >3 sec, edema (R> L, 2-3+ BLE) Respiratory Exam: normal breath sounds, other (diminished at the bases) SpO2: 98 Gastrointestinal/Abdomen Exam: soft, normal bowel sounds Skin Exam: normal color Extremity Exam: edema Neurologic: combustion engineer II-XII grossly intact, 5/5 Motor and Sensory Upper and Lower Extremities Results Vital Signs: Vital Signs - 24 hr Temp Pulse Resp BP BP Pulse Ox 09/27/23 11:05 89 22 93/57 09/27/23 10:04 90 23 83/55 09/27/23 09:10 98.3 F 95 H 17 107/74 98 09/27/23 08:58 77 27 H 91/68 09/27/23 08:00 97.7 F 89 21 97/68 94 L 09/27/23 07:45 97.7 F 120 H 20 107/74 97 09/27/23 06:53 96 H 16 108/80 0802 06:20 99/67 08 06:10 109 H 22 111/72 97 02 06:07 106 H 24 98/73 98 09/27/23 06:00 111 H 21 105/81 97 09/27/23 05:53 90 20 111/72 09/27/23 05:50 108 H 27 H 98/82 97 09/27/23 05:46 97 09/27/23 05:40 114 H 20 115/86 98 09/27/23 05:31 118 H 28 H 118/87 98 09/27/23 05:20 125 H 23 98/75 96 09/27/23 05:11 122 H 24 104/56 98 09/27/23 05:00 113 H 22 119/79 95 02 04:53 113 H 20 98/75 09/27/23 04:50 102 H 21 112/82 98 02 04:40 113 H 22 99/83 98 09/27/23 04:30 129 H 17 112/75 99 09/27/23 04:20 112 H 18 115/71 99 09/27/23 04:10 119 H 20 114/80 100 0802 04:00 120 H 18 113/80 100 0802 03:53 128 H 19 104/56 09/27/23 03:40 94/76 0802 03:30 119 H 24 108/79 99 02 03:21 111 H 19 104/71 080224 03:20 138 H 22 104/71 99 02 03:10 132 H 13 106/78 98 09/27/23 03:00 105 H 21 115/79 98 02 02:53 120 H 12 105/73 08 02:50 162 H 18 105/73 97 09/27/23 02:40 106 H 3 L 116/77 98 08/02/24 02:38 117 H 25 H 100/80 97 09/27/23 02:30 107 H 22 106/81 98 09/27/23 02:12 97.9 F 144 H 30 H 119/89 99 Pain Assessment - Last Documented Pain Intensity 5 Intake and Output: Intake & Output 09/24/23 09/25/23 09/26/23 09/27/23 11:59 11:59 11:59 11:59 Intake Total 360 Output Total 3175 Balance -2815 Weight 96.1 kg LAB: I have reviewed the Labs in [facility]. Radiology Exams: Radiology Procedures Category Date Time Status CHEST WITH CONTRAST [CT] Stat Exams 09/27/23 03:54 Completed VENOUS BILATERAL EXTREMITY [US] Stat Exams 09/27/23 08:00 Completed - ECHO Echo: report reviewed by me Assessment & Plan (1) Atrial fibrillation with RVR Current Visit: Yes Status: Acute Assessment & Plan: Patient with much improved rates on current regimen. He reports he feels back to his baseline self. Agree with metoprolol 25mg q6h which can be titrated to optimize rate control Goal is HR < 110-120s. Once his metoprolol requirement is determined, he can be converted over to the long acting formulation but would recommend dosing it at BID intervals for more consistent coverage. Discussed in detail importance of getting his meds filled and taking them as well as outpatient follow up. He said he would make this a priority. Please also arrange outpatient follow up. No need to repeat echo given we have one from June Code(s): I48.91 - UNSPECIFIED ATRIAL FIBRILLATION - Encounter Critical Care Time: No Encounter: "The entirety of this encounter was performed via Telemedicine using audio and visual "
[2023-09-27] MEDS: Lasix 40 MG/4 ML IV SCH (11:32)
--- NOTE | 2023-09-27 12:15 | PCM.HP ---
<FRANCISCO PATEL - Last Filed: 09/27/23 11:49> History of Present Illness - Chief Complaint Chief Complaint: Atrial fibrillation with RVR Date: 09/27/23 History of Present Illness: is a 57 year old male with PMHX of recent colon cancer and treatment of chemo and radiation that ended 09/03/23 ( Oncologist- Dr. Dean, and Dr. Pineda), A-fib not on anticoagulation (Dx 2 months ago), and daily smoker. On 09/27/23 patient came in to our ER as the last 3 days he has noticed his heart racing and he has been more short of breath. Patient denies chest pain. Patient room air oxygen saturation level is 97 to 98%. Patient's systolic blood pressure on arrival to emergency department was 119. [facility] admission and discharge notes from dates 07/01/2023 to 07/03/2023. The discharge note states that the patient is to be on digoxin and based on the patient's Justice-Vasc score no coagulation therapy necessary. He admits to never picking up the script from the pharmacy and states he was more concerned about his cancer than his heart at the time. 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 He also has noticed increased swelling in bilateral lower extremities which he did not have 2 months ago, RLE >LLE. D-D bonilla 1.64. Venous duplex negative. Chest CT negative for PE but shows Mild BL pleural effusions. Lasix BID and EDWARD hose ordered. He is being weaned off cardizem gtt for a-fib RVR. HR continues to be in A-fib this morning but controlled. Cardiology consulted and ok with metoprolol Q6 and can be converted to BID when HR controlled. Discussed the importance of OP f/u with cardiology and PCP as well as taking meds as prescribed. He denies CP, SOB, abd. pain, N/V/D at this time. - Review of Systems Constitutional: No Fever, No Chills Eyes: No Symptoms Ears, Nose, & Throat: No Symptoms Respiratory: No Cough, No Short Of Breath Cardiac: Edema, Palpitations, No Chest Pain, No Syncope Abdominal/Gastrointestinal: No Abdominal Pain, No Nausea, No Vomiting, No Diarrhea Genitourinary Symptoms: No Dysuria Musculoskeletal: No Back Pain, No Neck Pain Skin: No Rash Neurological: No Dizziness, No Focal Weakness, No Sensory Changes Psychological: No Symptoms Endocrine: No Symptoms Hematologic/Lymphatic: No Symptoms Immunological/Allergic: No Symptoms Medications & Allergies Home Medications: Home Medication List Ibuprofen 200 mg [Motrin 200 mg] 600 mg PO Q6HPRN PRN 09/27/23 [History Confirmed 09/27/23] Allergies/Adverse Reactions: Allergies Allergy/AdvReac Type Severity Reaction Status Date / Time No Known Drug Allergies Allergy Verified 09/27/23 02:11 - Past Medical History Past Medical History: Yes Neurological History: No Pertinent History ENT History: No Pertinent History Cardiac History: Arrhythmia, Hypertension Respiratory History: Pneumonia Endocrine Medical History: No Pertinent History Musculoskelatal History: No Pertinent History GI Medical History: Gallbladder Disease History: No Pertinent History Pyscho-Social History: No Pertinent History Male Reproductive Disorders: No Pertinent History Comment: rectal cancer - Past Surgical History Past Surgical History: Yes Neuro Surgical History: No Pertinent History Cardiac History: No Pertinent History Respiratory Surgery: No Pertinent History GI Surgical History: Cholecystectomy Genitourinary Surgical Hx: No Pertinent History Musculskeletal Surgical Hx: No Pertinent History Male Surgical History: No Pertinent History Other Surgical History: T&A. teeth extraction, bile duct surgery - Social History Smoking Status: Current every day smoker How long have you smoked: "30 years" Exposure to second hand smoke: Yes Alcohol: None Drug Use: none - Social Determinants of Health Will the patient participate in the screening: Declined to provide Do you worry about a steady place to live?: No In the past 12 months,have you had to go without utilities?: No Have you or anyone in your house had to go without enough: No Transportation Issues: No Has anyone in your support network made you feel unsafe?: No Does the patient want assistance with any of the above?: No - Physical Exam Vital Signs: Vital Signs - 24 hr Temp Pulse Resp BP BP Pulse Ox 09/27/23 11:31 104 H 16 97/67 97 09/27/23 11:28 98 09/27/23 11:05 89 22 93/57 09/27/23 11:01 103 H 27 H 93/57 98 09/27/23 10:53 113 H 12 90/65 09/27/23 10:30 102 H 27 H 96/56 98 09/27/23 10:23 96 H 23 95/55 97 09/27/23 10:04 90 23 83/55 09/27/23 10:02 91 H 27 H 83/55 97 09/27/23 09:30 93 H 17 87/61 09/27/23 09:10 98.3 F 95 H 17 107/74 98 09/27/23 09:00 86 25 H 84/56 96 09/27/23 08:58 77 27 H 91/68 09/27/23 08:30 94 H 27 H 91/68 96 09/27/23 08:00 97.7 F 89 21 97/68 94 L 09/27/23 07:45 97.7 F 120 H 20 107/74 97 09/27/23 06:53 96 H 16 108/80 09/27/23 06:20 99/67 09/27/23 06:10 109 H 22 111/72 97 09/27/23 06:07 106 H 24 98/73 98 09/27/23 06:00 111 H 21 105/81 97 09/27/23 05:53 90 20 111/72 09/27/23 05:50 108 H 27 H 98/82 97 09/27/23 05:46 97 09/27/23 05:40 114 H 20 115/86 98 09/27/23 05:31 118 H 28 H 118/87 98 09/27/23 05:20 125 H 23 98/75 96 09/27/23 05:11 122 H 24 104/56 98 09/27/23 05:00 113 H 22 119/79 95 09/27/23 04:53 113 H 20 98/75 09/27/23 04:50 102 H 21 112/82 98 09/27/23 04:40 113 H 22 99/83 98 09/27/23 04:30 129 H 17 112/75 99 09/27/23 04:20 112 H 18 115/71 99 09/27/23 04:10 119 H 20 114/80 100 09/27/23 04:00 120 H 18 113/80 100 09/27/23 03:53 128 H 19 104/56 09/27/23 03:40 94/76 09/27/23 03:30 119 H 24 108/79 99 09/27/23 03:21 111 H 19 104/71 09/27/23 03:20 138 H 22 104/71 99 09/27/23 03:10 132 H 13 106/78 98 09/27/23 03:00 105 H 21 115/79 98 09/27/23 02:53 120 H 12 105/73 09/27/23 02:50 162 H 18 105/73 97 09/27/23 02:40 106 H 3 L 116/77 98 09/27/23 02:38 117 H 25 H 100/80 97 09/27/23 02:30 107 H 22 106/81 98 09/27/23 02:12 97.9 F 144 H 30 H 119/89 99 General Appearance: no apparent distress, alert Neurologic Exam: alert, oriented x 3, cooperative, normal mood/affect, nml cerebellar function, nml station & gait, sensation nml, No motor deficits Eye Exam: PERRL/EOMI, eyes nml inspection Ears, Nose, Throat Exam: normal ENT inspection, TMs normal, pharynx normal, moist mucous membranes Neck Exam: normal inspection, non-tender, supple, full range of motion Respiratory Exam: normal breath sounds, lungs clear, No respiratory distress Cardiovascular Exam: normal heart sounds, normal peripheral pulses, irregular, edema (+3 pitting BLLE, R>L) Gastrointestinal/Abdomen Exam: soft, normal bowel sounds, No tenderness, No mass Back Exam: normal inspection, normal range of motion, No CVA tenderness, No vertebral tenderness Extremity Exam: normal inspection, normal range of motion, pelvis stable Skin Exam: normal color, warm, dry, No rash Lymphatic Exam: No adenopathy Results - Labs Lab/Micro Results: Lab Results-Last 24 Hours 09/27/23 09/27/23 09/27/23 Range/Units 02:34 02:34 02:34 WBC 2.6 L (4.23-9.07) x10^3/uL RBC 3.25 L (4.63-6.08) x10^6/uL Hgb 10.3 L (13.7-17.5) g/dL Hct 32.5 L (40.1-51.0) % MCV 100.0 H (79.0-92.2) fL MCH 31.7 (25.7-32.2) pg MCHC 31.7 L (32.3-36.5) g/dL RDW 20.1 H (11.6-14.4) % Plt Count 112 L (163-337) x10^3/uL MPV 10.1 (9.4-12.4) fL Gran % 69.3 H (34.0-67.9) % Immature Gran % (Auto) 0.8 H (0.001-0.429) % Nucleat RBC Rel Count 0.0 (0.00-0.2) % Eos # (Auto) 0.05 (0.04-0.54) x10^3/uL Immature Gran # (Auto) 0.02 (0.001-0.031) x10^3u/L Absolute Lymphs (auto) 0.36 L (1.32-3.57) x10^3/uL Absolute Monos (auto) 0.35 (0.30-0.82) x10^3/uL Absolute Nucleated RBC 0.00 (0.00-0.012) x10^3u/L Lymphocytes % 13.8 L (21.8-53.1) % Monocytes % 13.4 H (5.3-12.2) % Eosinophils % 1.9 (0.8-7.0) % Basophils % 0.8 (0.2-1.2) % Absolute Granulocytes 1.81 (1.78-5.38) x10^3/uL Basophils # 0.02 (0.01-0.08) x10^3/uL PT 10.6 (9.4-12.5) SECONDS INR 0.97 (0.8-3.0) APTT 26.3 (25.1-36.5) SECONDS D-Dimer (0.0-0.50) mg/L Sodium 140 (135-145) mmol/L Potassium 3.9 (3.5-5.1) mmol/L Chloride 109 H (98-107) mmol/L Carbon Dioxide 24 (22-30) mmol/L Anion Gap 10.4 (5-15) MEQ/L BUN 11 (9-20) mg/dL Creatinine 0.65 L (0.66-1.25) mg/dL Estimated GFR 109.9 ML/MIN Glucose 99 (74-106) mg/dL Calcium 8.7 (8.4-10.2) mg/dL Magnesium 2.0 (1.6-2.3) mg/dL Total Bilirubin 0.90 (0.2-1.3) mg/dL AST 24 (17-59) U/L ALT 23 (0-50) U/L Alkaline Phosphatase 76 (38-126) U/L Troponin I (0.000-0.033) ng/mL NT-Pro-B Natriuret Pep (<300) pg/mL Serum Total Protein 6.2 L (6.3-8.2) g/dL Albumin 3.3 L (3.5-5.0) g/dL Digoxin (0.8-1.9) ng/mL Slides for Path Review YES 09/27/23 09/27/23 09/27/23 Range/Units 02:34 02:34 02:34 WBC (4.23-9.07) x10^3/uL RBC (4.63-6.08) x10^6/uL Hgb (13.7-17.5) g/dL Hct (40.1-51.0) % MCV (79.0-92.2) fL MCH (25.7-32.2) pg MCHC (32.3-36.5) g/dL RDW (11.6-14.4) % Plt Count (163-337) x10^3/uL MPV (9.4-12.4) fL Gran % (34.0-67.9) % Immature Gran % (Auto) (0.001-0.429) % Nucleat RBC Rel Count (0.00-0.2) % Eos # (Auto) (0.04-0.54) x10^3/uL Immature Gran # (Auto) (0.001-0.031) x10^3u/L Absolute Lymphs (auto) (1.32-3.57) x10^3/uL Absolute Monos (auto) (0.30-0.82) x10^3/uL Absolute Nucleated RBC (0.00-0.012) x10^3u/L Lymphocytes % (21.8-53.1) % Monocytes % (5.3-12.2) % Eosinophils % (0.8-7.0) % Basophils % (0.2-1.2) % Absolute Granulocytes (1.78-5.38) x10^3/uL Basophils # (0.01-0.08) x10^3/uL PT (9.4-12.5) SECONDS INR (0.8-3.0) APTT (25.1-36.5) SECONDS D-Dimer (0.0-0.50) mg/L Sodium (135-145) mmol/L Potassium (3.5-5.1) mmol/L Chloride (98-107) mmol/L Carbon Dioxide (22-30) mmol/L Anion Gap (5-15) MEQ/L BUN (9-20) mg/dL Creatinine (0.66-1.25) mg/dL Estimated GFR ML/MIN Glucose (74-106) mg/dL Calcium (8.4-10.2) mg/dL Magnesium (1.6-2.3) mg/dL Total Bilirubin (0.2-1.3) mg/dL AST (17-59) U/L ALT (0-50) U/L Alkaline Phosphatase (38-126) U/L Troponin I < 0.012 (0.000-0.033) ng/mL NT-Pro-B Natriuret Pep 2520 (<300) pg/mL Serum Total Protein (6.3-8.2) g/dL Albumin (3.5-5.0) g/dL Digoxin < 0.4 L (0.8-1.9) ng/mL Slides for Path Review 09/27/23 09/27/23 Range/Units 02:45 06:05 WBC (4.23-9.07) x10^3/uL RBC (4.63-6.08) x10^6/uL Hgb (13.7-17.5) g/dL Hct (40.1-51.0) % MCV (79.0-92.2) fL MCH (25.7-32.2) pg MCHC (32.3-36.5) g/dL RDW (11.6-14.4) % Plt Count (163-337) x10^3/uL MPV (9.4-12.4) fL Gran % (34.0-67.9) % Immature Gran % (Auto) (0.001-0.429) % Nucleat RBC Rel Count (0.00-0.2) % Eos # (Auto) (0.04-0.54) x10^3/uL Immature Gran # (Auto) (0.001-0.031) x10^3u/L Absolute Lymphs (auto) (1.32-3.57) x10^3/uL Absolute Monos (auto) (0.30-0.82) x10^3/uL Absolute Nucleated RBC (0.00-0.012) x10^3u/L Lymphocytes % (21.8-53.1) % Monocytes % (5.3-12.2) % Eosinophils % (0.8-7.0) % Basophils % (0.2-1.2) % Absolute Granulocytes (1.78-5.38) x10^3/uL Basophils # (0.01-0.08) x10^3/uL PT (9.4-12.5) SECONDS INR (0.8-3.0) APTT (25.1-36.5) SECONDS D-Dimer 1.64 H* (0.0-0.50) mg/L Sodium (135-145) mmol/L Potassium (3.5-5.1) mmol/L Chloride (98-107) mmol/L Carbon Dioxide (22-30) mmol/L Anion Gap (5-15) MEQ/L BUN (9-20) mg/dL Creatinine (0.66-1.25) mg/dL Estimated GFR ML/MIN Glucose (74-106) mg/dL Calcium (8.4-10.2) mg/dL Magnesium (1.6-2.3) mg/dL Total Bilirubin (0.2-1.3) mg/dL AST (17-59) U/L ALT (0-50) U/L Alkaline Phosphatase (38-126) U/L Troponin I < 0.012 (0.000-0.033) ng/mL NT-Pro-B Natriuret Pep (<300) pg/mL Serum Total Protein (6.3-8.2) g/dL Albumin (3.5-5.0) g/dL Digoxin (0.8-1.9) ng/mL Slides for Path Review - Radiology Impressions Radiology Exams & Impressions: Radiology Procedures Category Date Time Status CHEST WITH CONTRAST [CT] Stat Exams 09/27/23 03:54 Completed VENOUS BILATERAL EXTREMITY [US] Stat Exams 09/27/23 08:00 Completed - Other Procedures and Tests Respiratory Therapy 09/27/23 09:36 Smoking Cessation Education ONCE Assessment/Plan (1) Atrial fibrillation with RVR Current Visit: Yes Status: Acute Assessment & Plan: - ICU- Tele - Cardiology consult- note reviewed and agree with plan of care - Continue Metoprolol Q6- plan to changed to BID dosing - wean cardizem gtt - a-fib now controlled - Echo 07/02/23 EF 68% - Cardizem IV x2, and metoprolol gave in ER - TROP x2 negative- trend - CTA reviewed -TSH Code(s): I48.91 - UNSPECIFIED ATRIAL FIBRILLATION (2) CHF exacerbation Current Visit: Yes Status: Acute Assessment & Plan: - Lasix 40 BID - BNP 2520 - CT chest IMPRESSION: 1. No evidence of acute pulmonary arterial thromboembolic disease. 2. Mild bilateral pleural effusion, more on the right side with underlying lower lobar atelectatic changes. 3. Centrilobular and paraseptal emphysematous changes predominantly involving both upper lobes. 4. The rest of the findings as detailed. - Echo 07/02/23- EF 68% IMPRESSION: 1) NORMAL CONTRACTILITY OF THE LEFT VENTRICLE. 2) BORDERLINE LEFT ATRIAL DILATATION. 3) DILATED RIGHT ATRIUM. 4) MILD TRICUSPID REGURGITATION. 5) MILD PULMONARY HYPERTENSION - F/U with cardiology OP Code(s): I50.9 - HEART FAILURE, UNSPECIFIED (3) Leg swelling Current Visit: Yes Status: Acute Assessment & Plan: - elevate legs - EDWARD hose - Lasix BID - Venous duplex negative for DVT Code(s): M79.89 - OTHER SPECIFIED SOFT TISSUE DISORDERS (4) Noncompliance with medication regimen Current Visit: Yes Status: Acute Assessment & Plan: - advised to f/u with cardiology and PCP OP - advised to take meds as prescribed Code(s): Z91.148 - PATIENT'S OTHER NONCOMPL WITH MEDS REGIMEN FOR OTHER REASON (5) Shortness of breath Current Visit: Yes Status: Resolved Assessment & Plan: - resolved since a-fib RVR resolved - CT chest reviewed- BL pleural effusions- lasix BID Code(s): R06.02 - SHORTNESS OF BREATH (6) Rectal cancer Current Visit: No Status: Acute Assessment & Plan: - hx of with treatment ending September 02 - Follows Dr. Dean and Dr. Pineda Code(s): C20 - MALIGNANT NEOPLASM OF RECTUM (7) Elevated d-dimer Current Visit: Yes Status: Acute Assessment & Plan: - D- dimer 1.64 - CT negative for PE - VD negative Code(s): R79.89 - OTHER SPECIFIED ABNORMAL FINDINGS OF BLOOD CHEMISTRY (8) Smoker Current Visit: No Status: Chronic Assessment & Plan: - advised cessation - nicotine patch VTE: Lovenox Next of KIN: Li Esteves [phone] D/C plan: 1-2 days Code status: Full Code(s): F17.200 - NICOTINE DEPENDENCE, UNSPECIFIED, UNCOMPLICATED <COLETTE FLYNN - Last Filed: 09/27/23 21:00> History of Present Illness - Chief Complaint History of Present Illness: is a 57 year old male. - Physical Exam Vital Signs: Vital Signs - 24 hr Temp Pulse Resp BP BP Pulse Ox 09/27/23 19:48 98.2 F 116 H 18 110/79 93 L 09/27/23 17:52 98 H 96/61 09/27/23 16:52 104 H 90/60 09/27/23 16:00 97.5 F 114 H 20 82/52 95 09/27/23 14:00 97 H 19 96/70 98 09/27/23 13:30 94 H 26 H 90/70 09/27/23 13:00 94 H 25 H 96/73 99 09/27/23 12:30 105 H 24 103/76 98 09/27/23 12:00 103 H 22 95/64 97 09/27/23 11:45 97.9 F 115 H 27 H 90/65 97 09/27/23 11:31 104 H 16 97/67 97 09/27/23 11:28 98 09/27/23 11:05 89 22 93/57 09/27/23 11:01 103 H 27 H 93/57 98 09/27/23 10:53 113 H 12 90/65 09/27/23 10:30 102 H 27 H 96/56 98 09/27/23 10:23 96 H 23 95/55 97 09/27/23 10:04 90 23 83/55 09/27/23 10:02 91 H 27 H 83/55 97 0802 09:30 93 H 17 87/61 09/27/23 09:10 98.3 F 95 H 17 107/74 98 09/27/23 09:00 86 25 H 84/56 96 09/27/23 08:58 77 27 H 91/68 09/27/23 08:30 94 H 27 H 91/68 96 09/27/23 08:00 97.7 F 89 21 97/68 94 L 09/27/23 07:45 97.7 F 120 H 20 107/74 97 09/27/23 06:53 96 H 16 108/80 09/27/23 06:20 99/67 09/27/23 06:10 109 H 22 111/72 97 09/27/23 06:07 106 H 24 98/73 98 09/27/23 06:00 111 H 21 105/81 97 09/27/23 05:53 90 20 111/72 09/27/23 05:50 108 H 27 H 98/82 97 09/27/23 05:46 97 09/27/23 05:40 114 H 20 115/86 98 09/27/23 05:31 118 H 28 H 118/87 98 09/27/23 05:20 125 H 23 98/75 96 09/27/23 05:11 122 H 24 104/56 98 09/27/23 05:00 113 H 22 119/79 95 09/27/23 04:53 113 H 20 98/75 09/27/23 04:50 102 H 21 112/82 98 09/27/23 04:40 113 H 22 99/83 98 09/27/23 04:30 129 H 17 112/75 99 09/27/23 04:20 112 H 18 115/71 99 09/27/23 04:10 119 H 20 114/80 100 09/27/23 04:00 120 H 18 113/80 100 09/27/23 03:53 128 H 19 104/56 09/27/23 03:40 94/76 09/27/23 03:30 119 H 24 108/79 99 02 03:21 111 H 19 104/71 09/27/23 03:20 138 H 22 104/71 99 08/02/24 03:10 132 H 13 106/78 98 09/27/23 03:00 105 H 21 115/79 98 09/27/23 02:53 120 H 12 105/73 09/27/23 02:50 162 H 18 105/73 97 09/27/23 02:40 106 H 3 L 116/77 98 09/27/23 02:38 117 H 25 H 100/80 97 09/27/23 02:30 107 H 22 106/81 98 09/27/23 02:12 97.9 F 144 H 30 H 119/89 99 Results - Labs Lab/Micro Results: Lab Results-Last 24 Hours 09/27/23 09/27/23 09/27/23 Range/Units 02:34 02:34 02:34 WBC 2.6 L (4.23-9.07) x10^3/uL RBC 3.25 L (4.63-6.08) x10^6/uL Hgb 10.3 L (13.7-17.5) g/dL Hct 32.5 L (40.1-51.0) % MCV 100.0 H (79.0-92.2) fL MCH 31.7 (25.7-32.2) pg MCHC 31.7 L (32.3-36.5) g/dL RDW 20.1 H (11.6-14.4) % Plt Count 112 L (163-337) x10^3/uL MPV 10.1 (9.4-12.4) fL Gran % 69.3 H (34.0-67.9) % Immature Gran % (Auto) 0.8 H (0.001-0.429) % Nucleat RBC Rel Count 0.0 (0.00-0.2) % Eos # (Auto) 0.05 (0.04-0.54) x10^3/uL Immature Gran # (Auto) 0.02 (0.001-0.031) x10^3u/L Absolute Lymphs (auto) 0.36 L (1.32-3.57) x10^3/uL Absolute Monos (auto) 0.35 (0.30-0.82) x10^3/uL Absolute Nucleated RBC 0.00 (0.00-0.012) x10^3u/L Lymphocytes % 13.8 L (21.8-53.1) % Monocytes % 13.4 H (5.3-12.2) % Eosinophils % 1.9 (0.8-7.0) % Basophils % 0.8 (0.2-1.2) % Absolute Granulocytes 1.81 (1.78-5.38) x10^3/uL Basophils # 0.02 (0.01-0.08) x10^3/uL PT 10.6 (9.4-12.5) SECONDS INR 0.97 (0.8-3.0) APTT 26.3 (25.1-36.5) SECONDS D-Dimer (0.0-0.50) mg/L Sodium 140 (135-145) mmol/L Potassium 3.9 (3.5-5.1) mmol/L Chloride 109 H (98-107) mmol/L Carbon Dioxide 24 (22-30) mmol/L Anion Gap 10.4 (5-15) MEQ/L BUN 11 (9-20) mg/dL Creatinine 0.65 L (0.66-1.25) mg/dL Estimated GFR 109.9 ML/MIN Glucose 99 (74-106) mg/dL Calcium 8.7 (8.4-10.2) mg/dL Magnesium 2.0 (1.6-2.3) mg/dL Total Bilirubin 0.90 (0.2-1.3) mg/dL AST 24 (17-59) U/L ALT 23 (0-50) U/L Alkaline Phosphatase 76 (38-126) U/L Troponin I (0.000-0.033) ng/mL NT-Pro-B Natriuret Pep (<300) pg/mL Serum Total Protein 6.2 L (6.3-8.2) g/dL Albumin 3.3 L (3.5-5.0) g/dL Digoxin (0.8-1.9) ng/mL Slides for Path Review YES 09/27/23 09/27/23 09/27/23 Range/Units 02:34 02:34 02:34 WBC (4.23-9.07) x10^3/uL RBC (4.63-6.08) x10^6/uL Hgb (13.7-17.5) g/dL Hct (40.1-51.0) % MCV (79.0-92.2) fL MCH (25.7-32.2) pg MCHC (32.3-36.5) g/dL RDW (11.6-14.4) % Plt Count (163-337) x10^3/uL MPV (9.4-12.4) fL Gran % (34.0-67.9) % Immature Gran % (Auto) (0.001-0.429) % Nucleat RBC Rel Count (0.00-0.2) % Eos # (Auto) (0.04-0.54) x10^3/uL Immature Gran # (Auto) (0.001-0.031) x10^3u/L Absolute Lymphs (auto) (1.32-3.57) x10^3/uL Absolute Monos (auto) (0.30-0.82) x10^3/uL Absolute Nucleated RBC (0.00-0.012) x10^3u/L Lymphocytes % (21.8-53.1) % Monocytes % (5.3-12.2) % Eosinophils % (0.8-7.0) % Basophils % (0.2-1.2) % Absolute Granulocytes (1.78-5.38) x10^3/uL Basophils # (0.01-0.08) x10^3/uL PT (9.4-12.5) SECONDS INR (0.8-3.0) APTT (25.1-36.5) SECONDS D-Dimer (0.0-0.50) mg/L Sodium (135-145) mmol/L Potassium (3.5-5.1) mmol/L Chloride (98-107) mmol/L Carbon Dioxide (22-30) mmol/L Anion Gap (5-15) MEQ/L BUN (9-20) mg/dL Creatinine (0.66-1.25) mg/dL Estimated GFR ML/MIN Glucose (74-106) mg/dL Calcium (8.4-10.2) mg/dL Magnesium (1.6-2.3) mg/dL Total Bilirubin (0.2-1.3) mg/dL AST (17-59) U/L ALT (0-50) U/L Alkaline Phosphatase (38-126) U/L Troponin I < 0.012 (0.000-0.033) ng/mL NT-Pro-B Natriuret Pep 2520 (<300) pg/mL Serum Total Protein (6.3-8.2) g/dL Albumin (3.5-5.0) g/dL Digoxin < 0.4 L (0.8-1.9) ng/mL Slides for Path Review 09/27/23 09/27/23 Range/Units 02:45 06:05 WBC (4.23-9.07) x10^3/uL RBC (4.63-6.08) x10^6/uL Hgb (13.7-17.5) g/dL Hct (40.1-51.0) % MCV (79.0-92.2) fL MCH (25.7-32.2) pg MCHC (32.3-36.5) g/dL RDW (11.6-14.4) % Plt Count (163-337) x10^3/uL MPV (9.4-12.4) fL Gran % (34.0-67.9) % Immature Gran % (Auto) (0.001-0.429) % Nucleat RBC Rel Count (0.00-0.2) % Eos # (Auto) (0.04-0.54) x10^3/uL Immature Gran # (Auto) (0.001-0.031) x10^3u/L Absolute Lymphs (auto) (1.32-3.57) x10^3/uL Absolute Monos (auto) (0.30-0.82) x10^3/uL Absolute Nucleated RBC (0.00-0.012) x10^3u/L Lymphocytes % (21.8-53.1) % Monocytes % (5.3-12.2) % Eosinophils % (0.8-7.0) % Basophils % (0.2-1.2) % Absolute Granulocytes (1.78-5.38) x10^3/uL Basophils # (0.01-0.08) x10^3/uL PT (9.4-12.5) SECONDS INR (0.8-3.0) APTT (25.1-36.5) SECONDS D-Dimer 1.64 H* (0.0-0.50) mg/L Sodium (135-145) mmol/L Potassium (3.5-5.1) mmol/L Chloride (98-107) mmol/L Carbon Dioxide (22-30) mmol/L Anion Gap (5-15) MEQ/L BUN (9-20) mg/dL Creatinine (0.66-1.25) mg/dL Estimated GFR ML/MIN Glucose (74-106) mg/dL Calcium (8.4-10.2) mg/dL Magnesium (1.6-2.3) mg/dL Total Bilirubin (0.2-1.3) mg/dL AST (17-59) U/L ALT (0-50) U/L Alkaline Phosphatase (38-126) U/L Troponin I < 0.012 (0.000-0.033) ng/mL NT-Pro-B Natriuret Pep (<300) pg/mL Serum Total Protein (6.3-8.2) g/dL Albumin (3.5-5.0) g/dL Digoxin (0.8-1.9) ng/mL Slides for Path Review - Radiology Impressions Radiology Exams & Impressions: Radiology Procedures Category Date Time Status CHEST WITH CONTRAST [CT] Stat Exams 09/27/23 03:54 Completed VENOUS BILATERAL EXTREMITY [US] Stat Exams 09/27/23 08:00 Completed - Other Procedures and Tests Respiratory Therapy 09/27/23 09:36 Smoking Cessation Education ONCE SARY Encounter - SARY Encounter Attestation SARY Encounter Attestation: "MosespersonallyseenandexamineSTEPHANY Mahoney andhavediscussed pertinent aspects of their care with Francisco Butts agree with the history, physical exam (any modifications based on my personal exam will be noted below), assessment, and plan as outlined in original note. Please see immediately below for my summary of findings and additional assessment and plan along with any meaningful corrections/explanations to the Subjective/Objective portions of the SARY note will be noted." My portion of the encounter took place via telemedicine. -Patient with Afib with RVR (not new), improved with cardizem gtt however patient had been hypotensive. Started on metoprolol 25 mg every 6 hours with hold parameters. Appreciate cardiology recommendations.
[2023-09-27] MEDS: Lopressor 25MG Tab PO SCH (12:41)
[2023-09-27] MEDS: Nicoderm CQ 21 MG TOP SCH (13:08)
[2023-09-27] MEDS: Klor Con PO ONE (13:08)
[2023-09-27] MEDS ORDERED: ENOXAPARIN SODIUM SQ SCH (15:00)
[2023-09-28 06:04] LABS: Absolute Neutrophil Ct (ANC) 1.47 x10^3/uL (1.78-5.38); BASOPHIL % 0.5 % (0.2-1.2); Basophil (Absolute #) 0.01 x10^3/uL (0.01-0.08); Eosinophil % 2.9 % (0.8-7.0); Eosinophil (Absolute #) 0.06 x10^3/uL (0.04-0.54); Hematocrit 30.3 % (40.1-51.0); Hemoglobin 9.4 g/dL (13.7-17.5); IMMATURE GRAN # 0.01 x10^3u/L (0.001-0.031); IMMATURE GRAN % 0.5 % (0.001-0.429); Lymphocyte (Absolute #) 0.28 x10^3/uL (1.32-3.57); Lymphocytes % 13.5 % (21.8-53.1); Mean Cell Volume 99.7 fL (79.0-92.2); Mean Corpuscular Hemoglobin 30.9 pg (25.7-32.2); Mean Platelet Volume 9.9 fL (9.4-12.4); Monocyte (Absolute #) 0.25 x10^3/uL (0.30-0.82); Neutrophil % 70.6 % (34.0-67.9); Platelet Count 99 x10^3/uL (163-337); Red Blood Count 3.04 x10^6/uL (4.63-6.08); Red Cell Distribution Width 20.2 % (11.6-14.4); White Blood Count 2.1 x10^3/uL (4.23-9.07)
[2023-09-28 06:53] LABS: ALBUMIN 2.9 g/dL (3.5-5.0); ANION GAP 8.5 MEQ/L (5-15); BILIRUBIN,TOTAL 1.1 mg/dL (0.2-1.3); Calcium 8.5 mg/dL (8.4-10.2); Creatinine 1 0.61 mg/dL (0.66-1.25); MAGNESIUM 2.1 mg/dL (1.6-2.3); Potassium 3.8 mmol/L (3.5-5.1); TSH, 3RD Generation 0.452 mIU/L (0.470-4.680); Total Protein 5.6 g/dL (6.3-8.2)
[2023-09-28] MEDS: ENOXAPARIN SODIUM SQ SCH (09:52)
[2023-09-28 10:38] LABS: Slide Review 1 YES
--- NOTE | 2023-09-28 11:44 | PCM.NOTE ---
Date and Time: 09/28/23 1134 Subjective Assessment: 09/27/23 is a 57 year old male with PMHX of recent colon cancer and treatment of chemo and radiation that ended 09/03/23 ( Oncologist- Dr. Dean, and Dr. Pineda), A-fib not on anticoagulation (Dx 2 months ago), and daily smoker. On 09/27/23 patient came in to our ER as the last 3 days he has noticed his heart racing and he has been more short of breath. Patient denies chest pain. Patient room air oxygen saturation level is 97 to 98%. Patient's systolic blood pressure on arrival to emergency department was 119. [facility] admission and discharge notes from dates 07/01/2023 to 07/03/2023. The discharge note states that the patient is to be on digoxin and based on the patient's Justice-Vasc score no coagulation therapy necessary. He admits to never picking up the script from the pharmacy and states he was more concerned about his cancer than his heart at the time. 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 He also has noticed increased swelling in bilateral lower extremities which he did not have 2 months ago, RLE >LLE. D-D bonilla 1.64. Venous duplex negative. Chest CT negative for PE but shows Mild BL pleural effusions. Lasix BID and EDWARD hose ordered. He is being weaned off cardizem gtt for a-fib RVR. HR continues to be in A-fib this morning but controlled. Cardiology consulted and ok with metoprolol Q6 and can be converted to BID when HR controlled. Discussed the importance of OP f/u with cardiology and PCP as well as taking meds as prescribed. He denies CP, SOB, abd. pain, N/V/D at this time. 09/28/23 Pt resting in bed. he was moved out of ICU yesterday as A-fib RVR controlled. Today he continues to have episodes of A-Fib RVR with HR sometimes up to 130 when moving around. Will change Metoprolol to XL and 75 BID and add Digoxin .25 daily. Ensure added with meals as protein level is low. TSH low at 0.452, will need OP lab f/u with PCP. Pt reports he was feeling SOB last night and was placed on oxygen. He is not requiring oxygen this AM, O2 93% RA. Will continue EDWARD hose today. Edema of BLLE improved since yesterday. He denies Cp, SOB, abd. pain, N/V/D. - Review of Systems Constitutional: No Fever, No Chills Eyes: No Symptoms Ears, Nose, & Throat: No Symptoms Respiratory: No Cough, No Short Of Breath Cardiac: Edema, Palpitations, No Chest Pain, No Syncope Abdominal/Gastrointestinal: No Abdominal Pain, No Nausea, No Vomiting, No Diarrhea Genitourinary Symptoms: No Dysuria Musculoskeletal: No Back Pain, No Neck Pain Skin: No Rash Neurological: No Dizziness, No Focal Weakness, No Sensory Changes Psychological: No Symptoms Endocrine: No Symptoms Hematologic/Lymphatic: No Symptoms Immunological/Allergic: No Symptoms Objective Exam General Appearance: no apparent distress, alert Neurologic Exam: alert, oriented x 3, cooperative, normal mood/affect, nml cerebellar function, sensation nml, No motor deficits Skin Exam: normal color, warm, dry Eye Exam: PERRL, EOMI, eyes nml inspection Ears, Nose, Throat Exam: normal ENT inspection, pharynx normal, moist mucous membranes Neck Exam: normal inspection, non-tender, supple, full range of motion Respiratory Exam: normal breath sounds, lungs clear, No respiratory distress Cardiovascular Exam: normal heart sounds, irregular, edema (BLLE +3) Gastrointestinal/Abdomen Exam: soft, No tenderness, No mass Extremity Exam: normal inspection, normal range of motion Back Exam: normal inspection, normal range of motion, No CVA tenderness, No vertebral tenderness Male Genitalia Exam: deferred Rectal Exam: deferred Objective Data Vital Signs: Vital Signs - 24 hr Temp Pulse Resp BP BP Pulse Ox 09/28/23 09:44 111/74 09/28/23 07:00 97.5 F 100 H 17 108/74 90 L 09/28/23 03:00 98.0 F 95 H 18 111/78 96 09/27/23 23:56 97.9 F 111 H 24 112/79 100 09/27/23 21:00 99 H 20 110/66 98 09/27/23 19:48 98.2 F 116 H 18 110/79 93 L 09/27/23 17:52 98 H 96/61 09/27/23 16:52 104 H 90/60 09/27/23 16:00 97.5 F 114 H 20 82/52 95 09/27/23 14:00 97 H 19 96/70 98 09/27/23 13:30 94 H 26 H 90/70 09/27/23 13:00 94 H 25 H 96/73 99 09/27/23 12:30 105 H 24 103/76 98 09/27/23 12:00 103 H 22 95/64 97 09/27/23 11:45 97.9 F 115 H 27 H 90/65 97 Pain Assessment - Last Documented Pain Intensity 0 Intake and Output: Intake & Output 09/25/23 09/26/23 09/27/23 09/28/23 11:59 11:59 11:59 11:59 Intake Total 360 2120 Output Total 3175 5962 Balance -7975 -205 Weight 96.1 kg 97 kg Lab Results: Lab Results-Last 24 Hours 09/28/23 09/28/23 Range/Units 05:38 05:38 WBC 2.1 L (4.23-9.07) x10^3/uL RBC 3.04 L (4.63-6.08) x10^6/uL Hgb 9.4 L (13.7-17.5) g/dL Hct 30.3 L (40.1-51.0) % MCV 99.7 H (79.0-92.2) fL MCH 30.9 (25.7-32.2) pg MCHC 31.0 L (32.3-36.5) g/dL RDW 20.2 H (11.6-14.4) % Plt Count 99 L (163-337) x10^3/uL MPV 9.9 (9.4-12.4) fL Gran % 70.6 H (34.0-67.9) % Immature Gran % (Auto) 0.5 H (0.001-0.429) % Nucleat RBC Rel Count 0.0 (0.00-0.2) % Eos # (Auto) 0.06 (0.04-0.54) x10^3/uL Immature Gran # (Auto) 0.01 (0.001-0.031) x10^3u/L Absolute Lymphs (auto) 0.28 L (1.32-3.57) x10^3/uL Absolute Monos (auto) 0.25 L (0.30-0.82) x10^3/uL Absolute Nucleated RBC 0.00 (0.00-0.012) x10^3u/L Lymphocytes % 13.5 L (21.8-53.1) % Monocytes % 12.0 (5.3-12.2) % Eosinophils % 2.9 (0.8-7.0) % Basophils % 0.5 (0.2-1.2) % Absolute Granulocytes 1.47 L (1.78-5.38) x10^3/uL Basophils # 0.01 (0.01-0.08) x10^3/uL Sodium 135 (135-145) mmol/L Potassium 3.8 (3.5-5.1) mmol/L Chloride 107 (98-107) mmol/L Carbon Dioxide 23 (22-30) mmol/L Anion Gap 8.5 (5-15) MEQ/L BUN 10 (9-20) mg/dL Creatinine 0.61 L (0.66-1.25) mg/dL Estimated GFR 112.0 ML/MIN Glucose 92 (74-106) mg/dL Calcium 8.5 (8.4-10.2) mg/dL Magnesium 2.1 (1.6-2.3) mg/dL Total Bilirubin 1.10 (0.2-1.3) mg/dL AST 26 (17-59) U/L ALT 18 (0-50) U/L Alkaline Phosphatase 61 (38-126) U/L NT-Pro-B Natriuret Pep 3230 (<300) pg/mL Serum Total Protein 5.6 L (6.3-8.2) g/dL Albumin 2.9 L (3.5-5.0) g/dL TSH 3rd Generation 0.452 L (0.470-4.680) mIU/L Slides for Path Review YES Radiology Exams: Radiology Procedures Category Date Time Status CHEST WITH CONTRAST [CT] Stat Exams 09/27/23 03:54 Completed VENOUS BILATERAL EXTREMITY [US] Stat Exams 09/27/23 08:00 Completed Multi-Disciplinary Progress Notes: Multi-Disciplinary Progress Notes 09/27/23 12:13 Case Management Note by Mary Small IF PATIENT DISCHARGES HOME ON ANY HIGH DOLLAR ANTICOAGULANT- NURSING TO CALL PHARMACY AFTER MED SENT IN TO BE SURE IT IS AFFORDABLE FOR PATIENT. Initialized on 09/27/23 12:13 - END OF NOTE Assessment/Plan (1) Atrial fibrillation with RVR Current Visit: Yes Status: Acute Code(s): I48.91 - UNSPECIFIED ATRIAL FIBRILLATION (2) CHF exacerbation Current Visit: Yes Status: Acute Code(s): I50.9 - HEART FAILURE, UNSPECIFIED (3) Leg swelling Current Visit: Yes Status: Acute Code(s): M79.89 - OTHER SPECIFIED SOFT TISSUE DISORDERS (4) Noncompliance with medication regimen Current Visit: Yes Status: Acute Code(s): Z91.148 - PATIENT'S OTHER NONCOMPL WITH MEDS REGIMEN FOR OTHER REASON (5) Shortness of breath Current Visit: Yes Status: Resolved Code(s): R06.02 - SHORTNESS OF BREATH (6) Rectal cancer Current Visit: No Status: Acute Code(s): C20 - MALIGNANT NEOPLASM OF RECTUM (7) Elevated d-dimer Current Visit: Yes Status: Acute Code(s): R79.89 - OTHER SPECIFIED ABNORMAL FINDINGS OF BLOOD CHEMISTRY (8) Smoker Current Visit: No Status: Chronic Code(s): F17.200 - NICOTINE DEPENDENCE, UNSPECIFIED, UNCOMPLICATED (9) Pancytopenia Current Visit: Yes Status: Acute Assessment & Plan: (1) Atrial fibrillation with RVR Current Visit: Yes Status: Acute Assessment & Plan: - ICU- Tele - Cardiology consult- note reviewed and agree with plan of care - Continue Metoprolol Q6- plan to changed to BID dosing - wean cardizem gtt - a-fib now controlled - Echo 07/02/23 EF 68% - Cardizem IV x2, and metoprolol gave in ER - TROP x2 negative- trend - CTA reviewed -TSH 09/27 - TSH low 0.452- f/u OP with PCP may need referral to endocrinology - Continued when pt gets up to walk HR increases - Metoprolol changed to XL and BID - Digoxin.25 added Code(s): I48.91 - UNSPECIFIED ATRIAL FIBRILLATION (2) CHF exacerbation Current Visit: Yes Status: Acute Assessment & Plan: - Lasix 40 BID - BNP 2520 - CT chest IMPRESSION: 1. No evidence of acute pulmonary arterial thromboembolic disease. 2. Mild bilateral pleural effusion, more on the right side with underlying lower lobar atelectatic changes. 3. Centrilobular and paraseptal emphysematous changes predominantly involving both upper lobes. 4. The rest of the findings as detailed. - Echo 07/02/23- EF 68% IMPRESSION: 1) NORMAL CONTRACTILITY OF THE LEFT VENTRICLE. 2) BORDERLINE LEFT ATRIAL DILATATION. 3) DILATED RIGHT ATRIUM. 4) MILD TRICUSPID REGURGITATION. 5) MILD PULMONARY HYPERTENSION - F/U with cardiology OP Code(s): I50.9 - HEART FAILURE, UNSPECIFIED (3) Leg swelling Current Visit: Yes Status: Acute Assessment & Plan: - elevate legs - EDWARD hose - Lasix BID - Venous duplex negative for DVT Code(s): M79.89 - OTHER SPECIFIED SOFT TISSUE DISORDERS (4) Noncompliance with medication regimen Current Visit: Yes Status: Acute Assessment & Plan: - advised to f/u with cardiology and PCP OP - advised to take meds as prescribed Code(s): Z91.148 - PATIENT'S OTHER NONCOMPL WITH MEDS REGIMEN FOR OTHER REASON (5) Shortness of breath Current Visit: Yes Status: Resolved Assessment & Plan: - resolved since a-fib RVR resolved - CT chest reviewed- BL pleural effusions- lasix BID 09/27 - RA 93% Code(s): R06.02 - SHORTNESS OF BREATH (6) Rectal cancer Current Visit: No Status: Acute Assessment & Plan: - hx of with treatment ending September 02 - Follows Dr. Dean and Dr. Pineda Code(s): C20 - MALIGNANT NEOPLASM OF RECTUM (7) Elevated d-dimer Current Visit: Yes Status: Acute Assessment & Plan: - D- dimer 1.64 - CT negative for PE - VD negative Code(s): R79.89 - OTHER SPECIFIED ABNORMAL FINDINGS OF BLOOD CHEMISTRY (8) Smoker Current Visit: No Status: Chronic Assessment & Plan: - advised cessation - nicotine patch Code(s): F17.200 - NICOTINE DEPENDENCE, UNSPECIFIED, UNCOMPLICATED 9. Pancytopenia ICD 10 D61.818 - HGb 9.4, Platelets 99, WBC 2.1-trend - recent chemo and radiation VTE: Lovenox Next of KIN: Li Esteves [phone] D/C plan: 1-2 days Code status: Full Code(s): D61.818 - OTHER PANCYTOPENIA
[2023-09-28] MEDS ORDERED: Lanoxin 0.125MG TABLET PO SCH ×2 (12:33→12:42)
[2023-09-28] MEDS ORDERED: Toprol-Xl 25MG Tablets PO ONE (12:36)
[2023-09-28] MEDS: Toprol Xl 50 MG PO ONE (12:56)
[2023-09-28] MEDS: Lanoxin 0.125MG TABLET PO SCH (12:57)
[2023-09-28] MEDS ORDERED: Lopressor 25MG Tab PO SCH (15:00)
--- NOTE | 2023-09-28 16:07 | PCM.NOTE ---
Date and Time: 09/28/23 1602 Subjective Assessment: This is a 57 yo man with rectal cancer presenting to the hospital with shortness of breath found to have AF RVR and lower extremity edema. Started on diuresis and PO metoprolol/IV cardizem to no avail. Feels well. Denies chest pains or shortness of breath but heart rate is still above 120 at rest. Diuresing well. Lower extremity edema has improved. Exam General:: alert and oriented x 4 Cardiovascular: irregular, irregular Respiratory:: clear to auscultation rosette O2 Delivery: Room Air Abdominal: active bowel sounds x 4 Extremity Exam: edema (1+ bilaterally) Objective Data Vital Signs: Vital Signs - 24 hr Temp Pulse Resp BP BP Pulse Ox 09/28/23 12:57 92 H 112/77 09/28/23 11:48 96.4 F 92 H 18 112/77 93 L 09/28/23 09:44 111/74 09/28/23 07:00 97.5 F 100 H 17 108/74 90 L 09/28/23 03:00 98.0 F 95 H 18 111/78 96 09/27/23 23:56 97.9 F 111 H 24 112/79 100 09/27/23 21:00 99 H 20 110/66 98 09/27/23 19:48 98.2 F 116 H 18 110/79 93 L 09/27/23 17:52 98 H 96/61 09/27/23 16:52 104 H 90/60 Pain Assessment - Last Documented Pain Intensity 0 Intake and Output: Intake & Output 09/26/23 09/27/23 09/28/23 09/29/23 11:59 11:59 11:59 11:59 Intake Total 360 2120 640 Output Total 2726 7375 4949 Balance -9736 -600 -6556 Weight 96.1 kg 97 kg LAB: I have reviewed the Labs in [employer]. Lab Results: Lab Results-Last 24 Hours 09/28/23 09/28/23 Range/Units 05:38 05:38 WBC 2.1 L (4.23-9.07) x10^3/uL RBC 3.04 L (4.63-6.08) x10^6/uL Hgb 9.4 L (13.7-17.5) g/dL Hct 30.3 L (40.1-51.0) % MCV 99.7 H (79.0-92.2) fL MCH 30.9 (25.7-32.2) pg MCHC 31.0 L (32.3-36.5) g/dL RDW 20.2 H (11.6-14.4) % Plt Count 99 L (163-337) x10^3/uL MPV 9.9 (9.4-12.4) fL Gran % 70.6 H (34.0-67.9) % Immature Gran % (Auto) 0.5 H (0.001-0.429) % Nucleat RBC Rel Count 0.0 (0.00-0.2) % Eos # (Auto) 0.06 (0.04-0.54) x10^3/uL Immature Gran # (Auto) 0.01 (0.001-0.031) x10^3u/L Absolute Lymphs (auto) 0.28 L (1.32-3.57) x10^3/uL Absolute Monos (auto) 0.25 L (0.30-0.82) x10^3/uL Absolute Nucleated RBC 0.00 (0.00-0.012) x10^3u/L Lymphocytes % 13.5 L (21.8-53.1) % Monocytes % 12.0 (5.3-12.2) % Eosinophils % 2.9 (0.8-7.0) % Basophils % 0.5 (0.2-1.2) % Absolute Granulocytes 1.47 L (1.78-5.38) x10^3/uL Basophils # 0.01 (0.01-0.08) x10^3/uL Sodium 135 (135-145) mmol/L Potassium 3.8 (3.5-5.1) mmol/L Chloride 107 (98-107) mmol/L Carbon Dioxide 23 (22-30) mmol/L Anion Gap 8.5 (5-15) MEQ/L BUN 10 (9-20) mg/dL Creatinine 0.61 L (0.66-1.25) mg/dL Estimated GFR 112.0 ML/MIN Glucose 92 (74-106) mg/dL Calcium 8.5 (8.4-10.2) mg/dL Magnesium 2.1 (1.6-2.3) mg/dL Total Bilirubin 1.10 (0.2-1.3) mg/dL AST 26 (17-59) U/L ALT 18 (0-50) U/L Alkaline Phosphatase 61 (38-126) U/L NT-Pro-B Natriuret Pep 3230 (<300) pg/mL Serum Total Protein 5.6 L (6.3-8.2) g/dL Albumin 2.9 L (3.5-5.0) g/dL TSH 3rd Generation 0.452 L (0.470-4.680) mIU/L Slides for Path Review YES Radiology Exams: Radiology Procedures Category Date Time Status CHEST WITH CONTRAST [CT] Stat Exams 09/27/23 03:54 Completed VENOUS BILATERAL EXTREMITY [US] Stat Exams 09/27/23 08:00 Completed Assessment & Plan (1) Atrial fibrillation with RVR Current Visit: Yes Status: Acute Assessment & Plan: Heart rate remains uncontrolled Start IV Digoxin 500 mcg x 1 then 250 mcg in 6 hours then 250 mcg 6 hours after that for 1g load Start PO Digoxin 250 mcg daily tomorrow switch back to metoprolol tartrate 50 mg po q6h continue diuresis apixaban 5 mg bid for stroke prevention Code(s): I48.91 - UNSPECIFIED ATRIAL FIBRILLATION (2) CHF exacerbation Current Visit: Yes Status: Acute Qualifiers: Heart failure type: diastolic Qualified Code(s): I50.33 - Acute on chronic diastolic (congestive) heart failure Assessment & Plan: improving continue iv diuresis with lasix 40 mg daily Code(s): I50.9 - HEART FAILURE, UNSPECIFIED (3) Leg swelling Current Visit: Yes Status: Acute Code(s): M79.89 - OTHER SPECIFIED SOFT TISSUE DISORDERS - Encounter Encounter: "The entirety of this encounter was performed via Telemedicine using audio and visual "
[2023-09-28] MEDS: Lanoxin 0.5 MG/2 ML INJECTION IV ONE (16:18)
[2023-09-28] MEDS: Lopressor 50 MG PO SCH (18:42)
[2023-09-28] MEDS: Lanoxin 0.5 MG/2 ML INJECTION IV SCH (21:42)
[2023-09-28] MEDS ORDERED: Toprol Xl 50 MG PO SCH (22:00)
[2023-09-29 06:22] LABS: Hematocrit 34.1 % (40.1-51.0); Hemoglobin 10.8 g/dL (13.7-17.5); Mean Cell Volume 97.4 fL (79.0-92.2); Mean Corpuscular Hemoglobin 30.9 pg (25.7-32.2); Mean Corpuscular Hgb Concent. 31.7 g/dL (32.3-36.5); Mean Platelet Volume 10.7 fL (9.4-12.4); Platelet Count 110 x10^3/uL (163-337); Red Cell Distribution Width 19.4 % (11.6-14.4); White Blood Count 2.6 x10^3/uL (4.23-9.07)
[2023-09-29 06:36] LABS: ANION GAP 7.8 MEQ/L (5-15); BILIRUBIN,TOTAL 1.3 mg/dL (0.2-1.3); Calcium 8.8 mg/dL (8.4-10.2); Creatinine 1 0.67 mg/dL (0.66-1.25); EST GLOMERULAR FILTRATION RATE 108.9 ML/MIN; Potassium 3.5 mmol/L (3.5-5.1); Total Protein 5.9 g/dL (6.3-8.2)
[2023-09-29 07:24] VITALS: RESP 16; O2SAT 97
[2023-09-29] MEDS ORDERED: Lopressor 50 MG ONE (07:56)
[2023-09-29] MEDS ORDERED: Lanoxin 0.125MG TABLET PO SCH (10:00)
[2023-09-29] MEDS: Lanoxin 0.125MG TABLET PO SCH (10:16)
--- NOTE | 2023-09-29 11:48 | PCM.DS ---
Discharge Summary Date of Admission: 09/27/23 06:06 Date of Discharge: 09/29/23 Admitting Physician: TC IBANEZ MD Consults: Consults on Case 09/27/23 07:45 Consult Cardiology ROUTINE Primary Care Provider: JOHNSON BENAVIDEZ Allergies Allergies No Known Drug Allergies Allergy (Verified 09/27/23 02:11) Hospital Summary - Hospital Course Hospital Course: 09/27/23 is a 57 year old male with PMHX of recent colon cancer and treatment of chemo and radiation that ended 09/03/23 ( Oncologist- Dr. Dean, and Dr. Pineda), A-fib not on anticoagulation (Dx 2 months ago), and daily smoker. On 09/27/23 patient came in to our ER as the last 3 days he has noticed his heart racing and he has been more short of breath. Patient denies chest pain. Patient room air oxygen saturation level is 97 to 98%. Patient's systolic blood pressure on arrival to emergency department was 119. [facility] admission and discharge notes from dates 07/01/2023 to 07/03/2023. The discharge note states that the patient is to be on digoxin and based on the patient's Justice-Vasc score no coagulation therapy necessary. He admits to never picking up the script from the pharmacy and states he was more concerned about his cancer than his heart at the time. 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 He also has noticed increased swelling in bilateral lower extremities which he did not have 2 months ago, RLE >LLE. D-D bonilla 1.64. Venous duplex negative. Chest CT negative for PE but shows Mild BL pleural effusions. Lasix BID and EDWARD hose ordered. He is being weaned off cardizem gtt for a-fib RVR. HR continues to be in A-fib this morning but controlled. Cardiology consulted and ok with metoprolol Q6 and can be converted to BID when HR controlled. Discussed the importance of OP f/u with cardiology and PCP as well as taking meds as prescribed. He denies CP, SOB, abd. pain, N/V/D at this time. 09/28/23 Pt resting in bed. he was moved out of ICU yesterday as A-fib RVR controlled. Today he continues to have episodes of A-Fib RVR with HR sometimes up to 130 when moving around. Will change Metoprolol to XL and 75 BID and add Digoxin .25 daily. Ensure added with meals as protein level is low. TSH low at 0.452, will need OP lab f/u with PCP. Pt reports he was feeling SOB last night and was placed on oxygen. He is not requiring oxygen this AM, O2 93% RA. Will continue EDWARD hose today. Edema of BLLE improved since yesterday. He denies Cp, SOB, abd. pain, N/V/D. 09/29/23 Pt resting in bed. He reports he is feeling much better. His HR is controlled today in a-fib. Cardiology re-consulted yesterday and meds changed. Pt wanting to go home today as he has animals to feed. Discussed meds that he will be discharged on in detail. Discussed the importance of picking up meds, taking them, and f/u with cardiology. He denies CP, SOB, abd. pain, N/V/D. - Vitals & Intake/Output Vital Signs: Vital Signs Temperature 97.6 F 09/29/23 07:00 Pulse Rate 89 09/29/23 10:16 Respiratory Rate 16 09/29/23 07:00 Blood Pressure 121/77 09/29/23 10:16 O2 Sat by Pulse Oximetry 97 09/29/23 07:00 Intake & Output: Intake & Output 09/26/23 09/27/23 09/28/23 09/29/23 11:59 11:59 11:59 11:59 Intake Total 360 2120 2450 Output Total 5224 8594 9580 Balance -1831 -677 -7378 Weight 96.1 kg 97 kg - Lab Result Diagrams: 09/29/23 05:40 09/29/23 05:40 Lab Results-Last 24 Hrs: Lab Results-Last 24 Hours 09/29/23 09/29/23 Range/Units 05:40 05:40 WBC 2.6 L (4.23-9.07) x10^3/uL RBC 3.50 L (4.63-6.08) x10^6/uL Hgb 10.8 L (13.7-17.5) g/dL Hct 34.1 L (40.1-51.0) % MCV 97.4 H (79.0-92.2) fL MCH 30.9 (25.7-32.2) pg MCHC 31.7 L (32.3-36.5) g/dL RDW 19.4 H (11.6-14.4) % Plt Count 110 L (163-337) x10^3/uL MPV 10.7 (9.4-12.4) fL Sodium 135 (135-145) mmol/L Potassium 3.5 (3.5-5.1) mmol/L Chloride 103 (98-107) mmol/L Carbon Dioxide 28 (22-30) mmol/L Anion Gap 7.8 (5-15) MEQ/L BUN 10 (9-20) mg/dL Creatinine 0.67 (0.66-1.25) mg/dL Estimated GFR 108.9 ML/MIN Glucose 91 (74-106) mg/dL Calcium 8.8 (8.4-10.2) mg/dL Total Bilirubin 1.30 (0.2-1.3) mg/dL AST 25 (17-59) U/L ALT 21 (0-50) U/L Alkaline Phosphatase 67 (38-126) U/L Serum Total Protein 5.9 L (6.3-8.2) g/dL Albumin 3.0 L (3.5-5.0) g/dL - Procedures and Test Procedures and Tests throughout Hospitalization: Therapy Orders & Screens 09/27/23 09:36 Smoking Cessation Education ONCE Comment: Diagnosis: Atrial fibrillation with RVR Smoking Status: Current every day smoker How long have you smoked: "30 years" Have you smoked in the past 12 months: Yes Approximately how many cigarettes per day: 15-20 Do you dip or chew tobacco: No Discharge Exam General Appearance: no apparent distress, alert Neurologic Exam: alert, oriented x 3, cooperative, normal mood/affect, nml cerebellar function, sensation nml, No motor deficits Eye Exam: PERRL, EOMI, eyes nml inspection Ears, Nose, Throat Exam: normal ENT inspection, pharynx normal, moist mucous membranes Neck Exam: normal inspection, non-tender, supple, full range of motion Respiratory Exam: normal breath sounds, lungs clear, No respiratory distress Cardiovascular Exam: normal heart sounds Gastrointestinal/Abdomen Exam: soft, No tenderness, No mass Male Genitalia Exam: deferred Rectal Exam: deferred Back Exam: normal inspection, normal range of motion, No CVA tenderness, No vertebral tenderness Extremity Exam: normal inspection, normal range of motion Skin Exam: normal color, warm, dry Final Diagnosis/Problem List - Final Discharge Diagnosis/Problem (1) Atrial fibrillation with RVR Current Visit: Yes Status: Acute Code(s): I48.91 - UNSPECIFIED ATRIAL FIBRILLATION (2) CHF exacerbation Current Visit: Yes Status: Acute Code(s): I50.9 - HEART FAILURE, UNSPECIFIED (3) Leg swelling Current Visit: Yes Status: Acute Code(s): M79.89 - OTHER SPECIFIED SOFT TISSUE DISORDERS (4) Noncompliance with medication regimen Current Visit: Yes Status: Acute Code(s): Z91.148 - PATIENT'S OTHER NONCOMPL WITH MEDS REGIMEN FOR OTHER REASON (5) Shortness of breath Current Visit: Yes Status: Resolved Code(s): R06.02 - SHORTNESS OF BREATH (6) Rectal cancer Current Visit: No Status: Acute Code(s): C20 - MALIGNANT NEOPLASM OF RECTUM (7) Elevated d-dimer Current Visit: Yes Status: Acute Code(s): R79.89 - OTHER SPECIFIED ABNORMAL FINDINGS OF BLOOD CHEMISTRY (8) Smoker Current Visit: No Status: Chronic Code(s): F17.200 - NICOTINE DEPENDENCE, UNSPECIFIED, UNCOMPLICATED (9) Pancytopenia Current Visit: Yes Status: Acute Assessment & Plan: (1) Atrial fibrillation with RVR Current Visit: Yes Status: Acute Assessment & Plan: - ICU- Tele - Cardiology consult- note reviewed and agree with plan of care - Continue Metoprolol Q6- plan to changed to BID dosing - wean cardizem gtt - a-fib now controlled - Echo 07/02/23 EF 68% - Cardizem IV x2, and metoprolol gave in ER - TROP x2 negative- trend - CTA reviewed -TSH 09/27 - TSH low 0.452- f/u OP with PCP may need referral to endocrinology - Continued when pt gets up to walk HR increases - Metoprolol changed to XL and BID - Digoxin.25 added 09/28 - Cardiology note reviewed and agree with plan of care - HR controlled today - Will Continue Toresimide, Will change Metoprolol to TID , and Digoxin - F/u with cardiology OP Code(s): I48.91 - UNSPECIFIED ATRIAL FIBRILLATION (2) CHF exacerbation Current Visit: Yes Status: Acute Assessment & Plan: - Lasix 40 BID - BNP 2520 - CT chest IMPRESSION: 1. No evidence of acute pulmonary arterial thromboembolic disease. 2. Mild bilateral pleural effusion, more on the right side with underlying lower lobar atelectatic changes. 3. Centrilobular and paraseptal emphysematous changes predominantly involving both upper lobes. 4. The rest of the findings as detailed. - Echo 07/02/23- EF 68% IMPRESSION: 1) NORMAL CONTRACTILITY OF THE LEFT VENTRICLE. 2) BORDERLINE LEFT ATRIAL DILATATION. 3) DILATED RIGHT ATRIUM. 4) MILD TRICUSPID REGURGITATION. 5) MILD PULMONARY HYPERTENSION - F/U with cardiology OP Code(s): I50.9 - HEART FAILURE, UNSPECIFIED (3) Leg swelling Current Visit: Yes Status: Acute Assessment & Plan: - elevate legs - EDWARD hose - Lasix BID - Venous duplex negative for DVT Code(s): M79.89 - OTHER SPECIFIED SOFT TISSUE DISORDERS (4) Noncompliance with medication regimen Current Visit: Yes Status: Acute Assessment & Plan: - advised to f/u with cardiology and PCP OP - advised to take meds as prescribed Code(s): Z91.148 - PATIENT'S OTHER NONCOMPL WITH MEDS REGIMEN FOR OTHER REASON (5) Shortness of breath Current Visit: Yes Status: Resolved Assessment & Plan: - resolved since a-fib RVR resolved - CT chest reviewed- BL pleural effusions- lasix BID 09/27 - RA 93% Code(s): R06.02 - SHORTNESS OF BREATH (6) Rectal cancer Current Visit: No Status: Acute Assessment & Plan: - hx of with treatment ending September 02 - Follows Dr. Dean and Dr. Pineda Code(s): C20 - MALIGNANT NEOPLASM OF RECTUM (7) Elevated d-dimer Current Visit: Yes Status: Acute Assessment & Plan: - D- dimer 1.64 - CT negative for PE - VD negative Code(s): R79.89 - OTHER SPECIFIED ABNORMAL FINDINGS OF BLOOD CHEMISTRY (8) Smoker Current Visit: No Status: Chronic Assessment & Plan: - advised cessation - nicotine patch Code(s): F17.200 - NICOTINE DEPENDENCE, UNSPECIFIED, UNCOMPLICATED 9. Pancytopenia ICD 10 D61.818 - HGb 9.4, Platelets 99, WBC 2.1-trend - recent chemo and radiation - F/U Op with oncology Code(s): D61.818 - OTHER PANCYTOPENIA - Discharge Discharge Date: 09/29/23 Disposition: Home, Self-Care Condition: Fair Prescriptions: New Digoxin 0.125 mg Tablet [Lanoxin 0.125MG TABLET] 0.25 mg PO DAILY 30 Days #30 tablet Metoprolol Tartrate 50 mg [Lopressor 50 MG] 50 mg PO TID 30 Days #90 tablet Continue Ibuprofen 200 mg [Motrin 200 mg] 600 mg PO Q6HPRN PRN PRN Reason: Pain Additional Instructions: You will be called tomorrow with a date and time for your cardiology appointment. Follow up with: JOHNSON BENAVIDEZ [Primary Care Provider] -
[2023-09-29] MEDS ORDERED: Lanoxin 0.5 MG/2 ML INJECTION IV SCH (12:00)
[2023-09-29 12:02] VITALS: BP 108/55; PULSE 75; TEMP 97.9
[2023-09-29] MEDS ORDERED: Toprol-Xl 25MG Tablets PO ONE (12:36)
[2023-09-29] MEDS: Lopressor 50 MG PO SCH (12:46)
== END 2023-09-29 12:38 | disposition home or self-care (01) ==
LOC: ED 02:08 → ICU 06:06 → INTOOBSV 06:06 → MED SURG 14:18
PROVIDERS: ADMIT Internal Medicine; ATTEND Internal Medicine
DX: I48.20 Chronic atrial fibrillation, unspecified (principal); F17.200 Nicotine dependence, unspecified, uncomplicated; R60.0 Localized edema; I50.9 Heart failure, unspecified; M79.89 Other specified soft tissue disorders; Z91.148 Patient's other noncompliance with medication regimen for other reason; R06.02 Shortness of breath; C20 Malignant neoplasm of rectum; D61.818 Other pancytopenia; Z79.899 Other long term (current) drug therapy
CPT/HCPCS: 36000; 36415; 71260; 80053; 80162; 83735; 83880; 84443; 84484; 85025; 85027; 85379; 85610; 85730; 93005; 93268; 93970; 94760; 96365; 96366; 96372; 96374; 96375; 96376; 99285; 99291; G0378; Q3014; J1160; J1650; J1940; A9270-GY

== ENCOUNTER 2023-12-30 10:58 | Day surgery (SDC) | payer BC ==
--- NOTE | 2023-12-29 16:46 | HP ---
HISTORY OF PRESENT ILLNESS: Patient is a 58-year-old gentleman had history of anal cancer. He is in need of followup colonoscopy to evaluate treatment response. He had problems with chemotherapy but he had radiation treatment for his anal cancer. PAST MEDICAL HISTORY: Anal cancer, history of dysrhythmia and AFib in the past, hypertension, he has history of pneumonia in the past. PAST SURGICAL HISTORY: He had cholecystectomy, tonsillectomy. He has had colonoscopy in the past with biopsy. FAMILY HISTORY: COPD, heart disease. SOCIAL HISTORY: One pack per day smoker. No alcohol abuse. MEDICATIONS: Potassium chloride, torsemide, Eliquis, metoprolol, digoxin. ALLERGIES: No known drug allergies. REVIEW OF SYSTEMS: Twelve systems reviewed. No chest pain or palpitations. Other systems pertinent for as noted above per preadmission assessment. He had problems and could not tolerate the chemotherapy so he did not finish the chemotherapy but did the radiation treatment for anal cancer. PHYSICAL EXAMINATION: GENERAL: Height 6 feet 2 inches. BMI 28.89. No acute distress. HEENT: Sclerae nonicteric. NECK: No JVD. CHEST: Equal excursion, nonlabored breathing. CARDIOVASCULAR: Regular rate and rhythm. ABDOMEN: Soft. EXTREMITIES: No cyanosis or edema. NEUROLOGIC: Alert and oriented. Moving all extremities symmetrically. PSYCHIATRIC: Appropriate mood and affect. RECTAL: Deferred. IMPRESSION: History of anal cancer, needs followup colonoscopy for evaluation of treatment response and history of PET scan recent. General risks of bleeding; infection; risk of bowel injury or perforation; risk of missed or nondiagnosis or incomplete exam possibly requiring other studies or procedure or referrals; general risk of anesthesia or sedation; risk of bowel prep not limited to. Consent was obtained. We will proceed with outpatient followup colonoscopy, evaluate history of anal cancer and history of PET scan results. Otherwise, hold thinners preop. Continue medications for hypertension and heart disease.
[2023-12-30] MEDS: Lactated Ringers 1,000 ML IV SCH (11:09)
[2023-12-30 11:18] VITALS: RESP 18
[2023-12-30] MEDS ORDERED: DIPRIVAN 200 MG/20 ML IV ONE ×2 (14:51→15:02)
[2023-12-30 15:46] VITALS: TEMP 97.5
[2023-12-30 15:57] VITALS: BP 123/94; PULSE 77; O2SAT 100
--- NOTE | 2023-12-31 17:05 | OP ---
SURGERY DATE/TIME: 2803 - 3894 PREOPERATIVE DIAGNOSIS: History of anal canal cancer, status post radiation treatment, in need of followup endoscopy and colonoscopy. ASA class 3. POSTOPERATIVE DIAGNOSES: 1) Small early polyps versus hyperplastic lesions of the sigmoid colon x2. 2) Fair but limited bowel prep. 3) Ulcerated area, anal canal, status post radiation treatment. PROCEDURE: 1) Colonoscopy to cecum, hot biopsy polypectomy of small early sigmoid colon polyps versus hyperplastic lesions x2. 2) Multiple cold biopsies of margin of ulcerated area, status post radiation treatment of anal cancer. 3) Cold biopsy of the firm area of perianal skin area status post radiation treatment. SURGEON: Robe Jolly MD ANESTHESIA: MAC. ESTIMATED BLOOD LOSS: Minimal. INDICATIONS: Please see the oncologist's notes, but I think the patient mentioned that he did not tolerate the chemo, so he just finished with the radiation treatment. He is in need of followup endoscopy. Consent was obtained. DESCRIPTION OF PROCEDURE AND FINDINGS: The patient was taken to the endoscopy room. MAC anesthesia was induced. After official time-out and no disagreement with planned procedure, digital rectal exam revealed the firm area of the anal canal area where he had the treatment. Videocolonoscope was inserted and passed up through the slightly tortuous sigmoid, descending, transverse, and ascending colon around to cecum. He did have some semi-solid stool throughout the particular proximal colon limiting exam for small lesions. The cecal area and the valve were well visualized, and appendiceal orifice area was visualized and photo documented. Prep overall was not that great on this side. The scope was slowly and carefully withdrawn. There were no signs of any large polyps, masses, or obstructing lesions. Over in the sigmoid, there were a couple of early polyps versus hyperplastic lesions treated with hot biopsy forceps. Good hemostasis was noted. Otherwise, the scope pulled back to the margin of the ulcer area where he had his radiation treatment. This area was soft whether there was any adenomatous or carcinomatous changes, it was felt it warranted multiple cold biopsies which were taken of this margin. On the outside of the perianal skin, there was a little bit of hardened fibrotic area. Cold biopsies were taken of this. This may have just been postradiation treatment changes as well. The scope was withdrawn. This ulcerated treated area extended up about 3 to 4 cm up through the anal canal. The rectum on the other side of that area appeared to be soft, no mucosal lesions. The scope was withdrawn. Findings discussed with the family out in the waiting area. I will see him back in the office in a week or two.
== END 2023-12-30 16:05 | disposition home or self-care (01) ==
LOC: SDC 10:58
PROVIDERS: ATTEND Surgery
DX: Z08 Encounter for follow-up examination after completed treatment for malignant neoplasm (principal); Z85.048 Personal history of other malignant neoplasm of rectum, rectosigmoid junction, and anus; Z92.3 Personal history of irradiation; K63.5 Polyp of colon; K62.6 Ulcer of anus and rectum
CPT/HCPCS: J1642; J2704